=== PATIENT | male | born 1980 | race Caucasian/White ===

== ENCOUNTER 2019-06-05 12:03 | Emergency (ER) | payer BC, SELFPAY ==
[2019-06-05 12:15] VITALS: BP 135/75; PULSE 58; RESP 16; TEMP 36.8; O2SAT 99
[2019-06-05 12:57] LABS: Bilirubin Small (Negative); Blood Negative (Negative); Clarity Cloudy (Clear); Glucose Negative (Negative); Ketones 80 mg/dL (Negative); Leukocyte Esterase Negative (Negative); Nitrite Negative (Negative); Specific Gravity >= 1.030 (1.005-1.025); Urobilinogen 0.2 EU/dL (Up TO 0.2); pH 5.5 (5-8)
[2019-06-05 13:07] LABS: Epithelial Cells Rare HPF (Negative); RBC Negative HPF (0-2); WBC 0-2 HPF (0-5)
[2019-06-05 13:08] LABS: C & S Indicated? No; Crystals Moderate Amorphous HPF (Negative); Mucus Moderate (Negative)
--- NOTE | 2019-06-05 13:17 | ED.GENADUL_ITS ---
Discharge Plan Disposition Patient Disposition: HOME Condition: Stable Discharge Details Chief Complaint: Abd Prob Clinical Impression: Kidney stone on right side Primary Care Provider: Karl Dow ED Provider: Luis Peoples Home Meds and New Rx's Prescriptions: New morphine 20 mg/5 mL (4 mg/mL) solution 10 - 20 mg PO Q4H PRN (Reason: pain) Qty: 50 RF: 0 ondansetron HCl [Zofran] 4 mg tablet 4 mg PO Q6H PRN (Reason: nausea and vomiting) Qty: 10 RF: 0 Discharge Instructions Instructions: Kidney Stones (ED) Additional Instructions: 1. Drink plenty of fluids. 2. Continue all medications as prescribed. 3. Acetaminophen 1000mg every 4 hours (up to 5 time a day) and/or ibuprofen 600mg every 6 hours as needed for fever or pain. 4. Morphine liquid 5 to 10 mg every 4 hours as needed for additional pain control. Return to the Emergency Department (ED) if your condition worsens, does not improve as expected, or for ANY other concerns. Specifically, return if you have new or uncontrolled pain, worsening fever, difficulty breathing, vomiting, or are unable to drink fluids. Referrals: Chavez Jenkins MD [ [facility] STAFF PHYSICIAN] - Discharge Data Discharge Date/Time-TO BE ENTERED AT DEPARTURE: 06/05/19 16:03 Medical Decision Making 39-year-old gentleman presents with new onset of atypical right-sided flank pain rating to his groin. Exam significant for right flank tenderness and right lower quadrant tenderness which reproduces subjective symptoms. UA nondiagnostic. Renal colic CT diagnostic for 6 mm UVJ stone. Clinical improved after receiving oral analgesia. Discharged home with a plan for OTC analgesia and outpatient urology follow-up. Given usual and customary return instructions prior to discharge. Medical Records Medical records reviewed: Yes I reviewed the patient's medical records. Imaging Data Radiologic Study: Attestation: I personally reviewed and interpreted this imaging study as follows: Imaging: CT Scan (Renal colic) My impression: There is a 6 millimeter UVJ stone with mild associated hydronephrosis.. There are bilateral duplex collecting systems. Reviewed independently contemporaneously by myself. Radiologist's impression: Same HPI 39-year-old gentleman with unremarkable past medical history presents with acute onset of severe right-sided abdominal pain with associated nauseous. He has had a sense of urinary urgency with decreased urinary output. Denies having history of previous similar symptoms. He denies fever/chills, dyspnea, chest pain, palpitations, generalized abdominal pain, change in bowel habits, melena, hematochezia. He has had no atypical lower extremity pain or swelling. General Date/Time Provider Initiated Documentation: 06/05/19 12:46 . Related Data Home Medications Medication Instructions Recorded Confirmed morphine 10 - 20 mg PO Q4H PRN #50 ml 06/05/19 ondansetron HCl [Zofran] 4 mg PO Q6H PRN #10 tab 06/05/19 Previous Rx's Medication Instructions Recorded morphine 10 - 20 mg PO Q4H PRN #50 ml 06/05/19 ondansetron HCl [Zofran] 4 mg PO Q6H PRN #10 tab 06/05/19 Allergies Allergy/AdvReac Type Severity Reaction Status Date / Time feathers AdvReac Mild epistaxis Unverified 06/05/19 12:39 General Stated Complaint: Abd Prob RADHA: 3 Review of Systems All systems reviewed & are unremarkable except as noted in HPI and below PFSH Social History Smoking/Tobacco Use Status: Never Drug use: Never Do you feel safe in your relationship?: Yes Exam Narrative Exam Narrative: Nursing note and vital signs have been reviewed and noted. GENERAL: alert, active, no acute distress, well -hydrated, well-nourished HEENT: atraumatic/normocephalic, PERRLA, EOMI, conjunctiva clear, external ears/canals normal, nasal mucosa normal NECK: supple, full range of motion, no mass, normal lymphadenopathy, no thyromegaly CARDIOVASCULAR: RRR, no murmurs, nl pulses, no edema PULMONARY: nl effort, no audible wheezing or stridor, nl breath sounds with no focal deficit. no chest wall tenderness ABDOMEN: soft, mild right flank/right lower quadrant tenderness., non-distended, no mass, no organomegaly EXTREMITY: normal muscle tone, all joints with FROM, no deformity or tenderness SKIN: no exanthem appreciated NEURO: gross motor exam normal, normal stance and gait PSYCH: alert and oriented, Course Vital Signs Vital signs: Vital Signs Temperature 98.2 F 06/05/19 12:15 Pulse 58 L 06/05/19 12:15 Respiratory Rate 16 06/05/19 12:15 Blood Pressure 135/75 06/05/19 12:15 Pulse Oximetry 99 06/05/19 12:15 Temperature 98.2 F 06/05/19 12:15 Temperature Source Temporal Artery Scan 06/05/19 12:15 Pulse 58 L 06/05/19 12:15 Respiratory Rate 16 06/05/19 12:15 Respiratory Effort Non-Labored 06/05/19 12:36 Blood Pressure 135/75 06/05/19 12:15 Blood Pressure Position Sitting 06/05/19 12:15 Pulse Oximetry 99 06/05/19 12:15 Pain Level 10 06/05/19 12:36 Lab/Test Results Lab/Test Results: Laboratory Tests Range/Units 06/05/19 12:51 Urine Color (Yellow) Yellow Urine Clarity (Clear) Cloudy Urine pH (5-8) 5.5 Ur Specific [place] (1.005-1.025) >= 1.030 H Urine Protein (Negative) mg/dL 30 H Urine Ketones (Negative) mg/dL 80 H Urine Blood (Negative) Negative Urine Nitrite (Negative) Negative Urine Bilirubin (Negative) Small H Urine Urobilinogen (Up TO 0.2) EU/dL 0.2 Ur Leukocyte Esterase (Negative) Negative Urine RBC (0-2) HPF Negative Urine WBC (0-5) HPF 0-2 Ur Epithelial Cells (Negative) HPF Rare Urine Crystals (Negative) HPF Moderate amorphous Urine Bacteria Not Applicable Urine Mucus (Negative) Moderate Ur Culture Indicated? No Urine Glucose (Negative) mg/dL Negative
[2019-06-05] MEDS: Lactated Ringers 1,000 ML 1000 ML IV (13:23)
[2019-06-05] MEDS: Metoclopramide 10 MG/2 ML VIAL IVP (13:24)
[2019-06-05] MEDS: Ketorolac 15 MG/ML VIAL IVP (13:24)
[2019-06-05] MEDS: HYDROmorphone 2 MG/ML VIAL 1 MG IVP (13:25)
[2019-06-05] MEDS: Normal Saline Flush 10 ML SYR IVP (13:25)
[2019-06-05] MEDS: Normal Saline 50 ML 200 ML (13:25)
[2019-06-05 13:33] LABS: Abs Immature Grans 0.05 k/cumm (0.0-0.09); Absolute Basophil Count 0.07 k/cumm (0.0-0.2); Absolute Eosinophil Count 0.01 k/cumm (0.0-0.7); Absolute Neutrophil Count 11.08 k/cumm (1.2-6.7); Basophils % 0.5; Eosinophils % 0.1; HCT 46.9 % (40.0-50.0); HGB 15.7 g/dL (13.5-17.5); Immature Grans % 0.4 %; Lymphocytes % 12.8; Mean Corp. HGB Concentration 33.5 g/dL (32.0-36.0); Mean Corpuscular Hemoglobin 29.6 pg (27.0-33.0); Mean Corpuscular Volume 88.3 fL (80-95); Mean Platelet Volume 10.6 fL (8.0-11.0); Monocytes % 6.7; Neutrophils % 79.5; Platelet Count 221 x1000/uL (130-400); RBC 5.31 m/cumm (4.50-6.00); RBC Distribution Width 13.2 % (11.8-14.1); White Blood Cell Count 13.94 k/cumm (4.4-10.8)
[2019-06-05 13:36] LABS: Absolute Lymphocyte Count 1.78 k/cumm (1.2-3.4); Absolute Monocyte Count 0.93 k/cumm (0.11-0.7)
--- NOTE | 2019-06-05 14:32 | DI.CT_ITS ---
EXAM: CT RENAL COLIC WO CLINICAL HISTORY: flank pain TECHNIQUE: Noncontrast COMPARISON: RENAL COLIC WO CONTRAST from 09/16/2016 FINDINGS: There is a 6 millimeter stone above the right ureterovesical junction causing mild right hydronephros is. There are bilateral duplex collecting systems. The upper and lower pole ureters merge proximall y. No additional urinary tract calculi are seen. The urinary bladder is nearly empty. The prostate is not enlarged. Gallstones are noted. There is no abnormal gallbladder distention or biliary dila tation. There is mild fatty infiltration of the liver and mild splenic enlargement. The pancreas an d adrenals are unremarkable. The appendix appears normal. There is no bowel dilatation or inflammat ory change. There is a mild amount of fat in the right inguinal canal. The aorta is normal in diame ter. No bony abnormalities are seen. IMPRESSION: Mild right hydronephrosis secondary to a 6 millimeter stone above the right ureterovesical junction.
[2019-06-05 15:23] VITALS: BP 113/68; PULSE 78; RESP 18; TEMP 36.5; O2SAT 95
[2019-06-05 15:52] VITALS: BP 106/59; PULSE 80; RESP 18; TEMP 36.5; O2SAT 95
== END 2019-06-05 16:03 | disposition home or self-care (01) ==
PROVIDERS: Emergency Provider Emergency Medicine; PCP General Practice
DX: R11.0 Nausea (principal); R10.31 Right lower quadrant pain; N13.2 Hydronephrosis with renal and ureteral calculous obstruction
CPT/HCPCS: 36415; 80053; 96361; 96374; 96375; 99284; 74176; 81003; 81015; 83735; 84484; 85025; J1885; J2765

== ENCOUNTER 2020-09-04 17:26 | Outpatient (REF) | payer BC, SELFPAY ==
[2020-09-04 20:38] LABS: HCT 46.1 % (40.0-50.0); HGB 15.7 g/dL (13.5-17.5); MCH 29.6 pg (27.0-33.0); MCHC 34.1 % (32.0-36.0); MCV 86.8 fL (80-95); MPV 11.5 fL (8.0-11.0); Platelet Count 285 10^3/uL (130-400); RBC 5.31 10^6/uL (4.36-5.78); RDW 12.8 % (11.8-14.1); RDW-SD 40.3 fL; WBC 7.17 10^3/uL (4.4-10.8)
[2020-09-04 20:59] LABS: ALT 56 U/L (16-63); AST 25 U/L (15-37); Albumin 4.5 g/dL (3.4-5.0); Alkaline Phosphatase 52 U/L (46-116); Anion Gap 12.7 mmol/L (3-11); BUN 12 mg/dL (7-18); Bilirubin, Total 0.4 mg/dL (0.2-1.0); CO2 27.3 mmol/L (21.0-32.0); Calcium 9.8 mg/dL (8.5-10.1); Calculated LDL 187 mg/dL (<100); Chloride 104 mmol/L (98-107); Cholesterol 264 mg/dL (<200); Glucose 89 mg/dL (74-106); HDL Cholesterol 36 mg/dL (40-60); Potassium 4.1 mmol/L (3.5-5.1); Sodium 144 mmol/L (136-145); Triglyceride 209 mg/dL (<150)
[2020-09-04 21:07] LABS: Bilirubin Negative (Negative); Blood Negative (Negative); Clarity Clear (Clear); Glucose Negative (Negative); Ketones Negative (Negative); Leukocyte Esterase Negative (Negative); Nitrite Negative (Negative); Specific Gravity >= 1.030 (1.005-1.025); Urobilinogen 0.2 EU/dL (Up TO 0.2)
[2020-09-04 21:15] LABS: Uric Acid 6.6 mg/dL (3.5-7.2)
== END 2020-09-04 17:27 | disposition home or self-care (01) ==
LOC: NCHCN 17:26
PROVIDERS: PCP General Practice; Visit Provider Family Medicine
DX: Z00.00 Encounter for general adult medical examination without abnormal findings (principal); R10.9 Unspecified abdominal pain; N20.0 Calculus of kidney
CPT/HCPCS: 80053; 80061; 85027; 81003; 84550

== ENCOUNTER 2020-11-18 16:24 | Outpatient (REF) | payer BC, SELFPAY ==
[2020-11-18 21:57] LABS: Abs Immature Grans 0.03 10^3/uL (0.0-0.06); Absolute Basophil Count 0.02 10^3/uL (0.0-0.2); Absolute Eosinophil Count 0.03 10^3/uL (0.0-0.7); Absolute Lymphocyte Count 1.95 10^3/uL (1.2-3.4); Absolute Monocyte Count 0.89 10^3/uL (0.1-0.8); Absolute Neutrophil Count 7.67 10^3/uL (1.2-6.7); Basophils % 0.2; Bilirubin Negative (Negative); Blood Negative (Negative); Clarity Clear (Clear); Eosinophils % 0.3; Glucose Negative (Negative); HCT 43.8 % (40.0-50.0); HGB 14.7 g/dL (13.5-17.5); Immature Grans % 0.3; Ketones Trace mg/dL (Negative); Leukocyte Esterase Negative (Negative); Lymphocytes % 18.4; MCH 29.3 pg (27.0-33.0); MCHC 33.6 % (32.0-36.0); MCV 87.4 fL (80-95); MPV 11.7 fL (8.0-11.0); Monocytes % 8.4; Neutrophils % 72.4; Nitrite Negative (Negative); Nucleated RBC 0 %; Platelet Count 241 10^3/uL (130-400); RBC 5.01 10^6/uL (4.36-5.78); RDW 12.6 % (11.8-14.1); RDW-SD 40.1 fL; Specific Gravity >= 1.030 (1.005-1.025); WBC 10.59 10^3/uL (4.4-10.8)
[2020-11-18 22:22] LABS: ALT 38 U/L (16-63); AST 15 U/L (15-37); Alkaline Phosphatase 49 U/L (46-116); Anion Gap 10.8 mmol/L (3-11); BUN 12 mg/dL (7-18); Bilirubin, Total 0.7 mg/dL (0.2-1.0); CO2 26.2 mmol/L (21.0-32.0); CREATININE 1.5 mg/dL (0.70-1.30); Calcium 9.1 mg/dL (8.5-10.1); Chloride 104 mmol/L (98-107); Estimated GFR 51.57 (mL/min/1.73m2); Glucose 99 mg/dL (74-106); Sodium 141 mmol/L (136-145); Total Protein 7.4 g/dL (6.4-8.2)
== END 2020-11-18 16:25 | disposition home or self-care (01) ==
LOC: NCHCN 16:24
PROVIDERS: PCP General Practice; Visit Provider Family Medicine
DX: R10.9 Unspecified abdominal pain (principal); R82.998 Other abnormal findings in urine
CPT/HCPCS: 80053; 81003; 85025

== ENCOUNTER 2021-08-13 17:15 | Outpatient (REF) | payer BC, SELFPAY ==
[2021-08-13 14:43] LABS: Abs Immature Grans 0.02 10^3/uL (0.0-0.06); Absolute Basophil Count 0.03 10^3/uL (0.0-0.2); Absolute Eosinophil Count 0.11 10^3/uL (0.0-0.7); Absolute Lymphocyte Count 1.79 10^3/uL (1.2-3.4); Absolute Monocyte Count 0.46 10^3/uL (0.1-0.8); Absolute Neutrophil Count 3.26 10^3/uL (1.2-6.7); Basophils % 0.5; Eosinophils % 1.9; HCT 47.1 % (40.0-50.0); HGB 15.8 g/dL (13.5-17.5); Immature Grans % 0.4; Lymphocytes % 31.6; MCH 29.6 pg (27.0-33.0); MCHC 33.5 % (32.0-36.0); MCV 88.2 fL (80-95); MPV 11.6 fL (8.0-11.0); Monocytes % 8.1; Neutrophils % 57.5; Nucleated RBC 0 %; Platelet Count 287 10^3/uL (130-400); RBC 5.34 10^6/uL (4.36-5.78); RDW 12.6 % (11.8-14.1); RDW-SD 40.4 fL; WBC 5.67 10^3/uL (4.4-10.8)
[2021-08-13 15:00] LABS: ALT 70 U/L (16-63); AST 24 U/L (15-37); Albumin 4.2 g/dL (3.4-5.0); Alkaline Phosphatase 58 U/L (46-116); Anion Gap 9.1 mmol/L (3-11); BUN 13 mg/dL (7-18); Bilirubin, Total 0.5 mg/dL (0.2-1.0); CO2 27.9 mmol/L (21.0-32.0); Calcium 9.1 mg/dL (8.5-10.1); Chloride 103 mmol/L (98-107); Glucose 98 mg/dL (74-106); Potassium 4.1 mmol/L (3.5-5.1); Sodium 140 mmol/L (136-145); Total Protein 7.7 g/dL (6.4-8.2)
[2021-08-13 16:57] LABS: Bilirubin Negative (Negative); Blood Negative (Negative); Clarity Clear (Clear); Glucose Negative (Negative); Ketones Negative (Negative); Leukocyte Esterase Negative (Negative); Nitrite Negative (Negative); Specific Gravity 1.025 (1.005-1.025); Urobilinogen 0.2 EU/dL (Up TO 0.2)
== END 2021-08-13 17:16 | disposition home or self-care (01) ==
LOC: NCHCN 17:15
PROVIDERS: PCP General Practice; Visit Provider Family Medicine
DX: R10.9 Unspecified abdominal pain (principal); K22.0 Achalasia of cardia
CPT/HCPCS: 80053; 81003; 85025

== ENCOUNTER 2021-09-09 01:03 | Outpatient (CLI) | payer BC, SELFPAY ==
--- NOTE | 2021-09-09 13:45 | DI.CT_ITS ---
Exam(s) CT ABDOMEN PELVIS W EXAM: CT ABDOMEN PELVIS W CLINICAL HISTORY: ABD PAIN, R10.9; ACHALASIA, K22.0; CHOLELITHIASIS, K80.20 TECHNIQUE: COMPARISON: CT RENAL COLIC WO CONTRAST from 09/16/[address] RENAL COLIC WO from 06/05/2019 FINDINGS: CT examination of the abdomen and pelvis was performed with bolus infusion of 100 cc of Omnipaque 350 . Images obtained through the lung bases are unremarkable. The liver shows mildly decreased attenuation consistent with hepatic steatosis. A linear low attenua tion area noted in the left hepatic lobe is unchanged prior CT 2017. There is a poorly defined inter mediate attenuation 1.5 cm in diameter mass in the right hepatic lobe posteriorly and an additional a joanne of intermediate attenuation/decreased attenuation is noted in the left hepatic lobe. Note is mad e of cholelithiasis. No biliary dilatation.. Spleen is unremarkable in appearance.. Pancreas is unremarkable in appearance. Adrenals appear normal bilaterally. Kidneys appear normal with no evidence of renal mass, hydronephrosis, or nephrolithiasis. Unremarkab le bladder. There is no evidence of abdominal or pelvic adenopathy. Abdominal aorta is of normal diameter and no abnormality is seen involving major visceral branches.. Appendix is normal. No evidence diverticulitis or bowel obstruction. No significant abdominal wall hernia seen. CT examination of the abdomen and pelvis was performed with bolus infusion of 100 cc of Omnipaque 350 . Impression: Cholelithiasis and indeterminate small hepatic low to intermediate attenuation lesions which were not present on prior CT examinations. Hepatic protocol MRI requested for further characterization of th e small hepatic lesions.. RADIATION DOSE DELIVERED: 1,498.59mGy.cm Total DLP 1,498.59mGy.cm Total DLP !Error CTDIvol DATA REPOSITORY: All CT scans at this facility are submitted to the National Radiology Data Registry (NRDR) Dose Index Registry (DIR) with the [employer] (ACR). RADIATION OPTIMIZATION: All CT scans at this facility use at least one of these dose optimization te chniques: automated exposure control; mA and/or kV adjustment per patient size (includes targeted exa ms where dose is matched to clinical indication); or iterative reconstruction.
[2021-09-09] MEDS: Omnipaque 350 MG/ML 100 ML BTL IJ (14:29)
== END 2021-09-09 01:23 ==
PROVIDERS: PCP Family Medicine; Visit Provider Family Medicine
DX: R10.9 Unspecified abdominal pain (principal); K80.20 Calculus of gallbladder without cholecystitis without obstruction; K22.0 Achalasia of cardia; K76.0 Fatty (change of) liver, not elsewhere classified; K76.89 Other specified diseases of liver
CPT/HCPCS: 74177; J3490

== ENCOUNTER → 2021-10-08 00:36 | Outpatient (CLI) | payer BC, SELFPAY ==
--- NOTE | 2021-10-08 | DI.MRI_ITS ---
Exam(s) MR ABDOMEN WO/W EXAM: MR ABDOMEN WO/W CLINICAL HISTORY: ABD PAIN R10.9 TECHNIQUE: Multiplanar multisequence MRI was performed with both pre and post contrast infused seque nces. Contrast injected sequences were performed following IV injection of cc of Dotarem. COMPARISON: CT RENAL COLIC WO CONTRAST from 09/16/[address] RENAL COLIC WO from 06/05/[address] ABDOMEN PELVIS W from 09/09/2021 FINDINGS: VISUALIZED LUNG BASES: No pleural effusions evident. There is no ascites evident. LIVER: In the right hepatic lobe there is a subcapsular well-defined slightly lobulated T2 hyperinten se lesion (T1 hypointense) which exhibits postcontrast injection pattern consistent with a benign cav ernous hemangioma. There is a linear signal abnormality also noted more medially in the right hepati c lobe which corresponds to what is unchanged on CT scan from at least 2017 has benign appearance. T here is also a consistently hypointense finding in the left lobe which is probably a benign calcifica tion and also evident on 2017 CT scan. BILIARY: There are multiple tiny gallstones. No gallbladder wall edema or pericholecystic fluid. CB D is not dilated and there no calculi evident in the nondilated CBD. PANCREAS: There is no evidence of pancreatic mass nor dilatation of the pancreatic duct. SPLEEN: Spleen is not enlarged and there are no intrasplenic lesions.Splenic and portal veins are pat ent ADRENALS: There are no significant adrenal masses. KIDNEYS: No solid renal masses. No hydronephrosis.No cysts evident. ABDOMINAL AORTA: Not enlarged and there is no significant para-aortic adenopathy. ANTERIOR ABDOMINAL WALL/GI: There is no evidence of significant anterior abdominal wall hernia in the field of view of this study.Is no evidence of obvious bowel obstruction. OSSEOUS: There are no lytic osseous lesions in the field of view of this study. IMPRESSION: 1. Cholelithiasis. There are multiple tiny gallstones (as seen on prior imaging studies) but there i s no evidence of gallbladder wall edema, pericholecystic fluid, nor dilatation of biliary tree, both intra and extrahepatic. 2. Benign appendix findings as described above. The 1.5 cm lesion of concern in the right hepatic lo be exhibits signal characteristics and enhancement pattern of a benign hemangioma. This can be follo wed conservatively with repeat ultrasound examination in 6 months to ensure stability. 3. No other significant findings on this MRI scan of the upper abdomen. DATA REPOSITORY:
[2021-10-08] MEDS: Gadoterate meglumine 20 ML VIAL IVP (08:31)
== END ==
PROVIDERS: PCP Family Medicine; Visit Provider Family Medicine
DX: K80.20 Calculus of gallbladder without cholecystitis without obstruction (principal)
CPT/HCPCS: 74183

== ENCOUNTER 2023-07-25 11:13 | Outpatient (REF) | payer BC, SELFPAY ==
[2023-07-25 15:35] LABS: Abs Immature Grans 0.03 10^3/uL (0.0-0.06); Absolute Basophil Count 0.03 10^3/uL (0.0-0.2); Absolute Eosinophil Count 0.11 10^3/uL (0.0-0.7); Absolute Lymphocyte Count 1.99 10^3/uL (1.2-3.4); Absolute Monocyte Count 0.69 10^3/uL (0.1-0.8); Absolute Neutrophil Count 6.25 10^3/uL (1.2-6.7); Basophils % 0.3; Eosinophils % 1.2; HCT 44.7 % (40.0-50.0); Immature Grans % 0.3; Lymphocytes % 21.9; MCH 28.8 pg (27.0-33.0); MCHC 33.6 % (32.0-36.0); MCV 86 fL (80-95); MPV 11.6 fL (8.0-11.0); Monocytes % 7.6; Neutrophils % 68.7; Platelet Count 269 10^3/uL (130-400); RDW 12.9 % (11.8-14.1); RDW-SD 39.9 fL
[2023-07-25 15:40] LABS: ESR 8 mm/hr (0-15)
[2023-07-25 16:02] LABS: ALT 44 U/L (16-63); AST 22 U/L (15-37); Albumin 4.1 g/dL (3.4-5.0); Alkaline Phosphatase 60 U/L (46-116); Anion Gap 12.3 mmol/L (3-11); BUN 11 mg/dL (7-18); Bilirubin, Total 0.5 mg/dL (0.2-1.0); CO2 25.7 mmol/L (21.0-32.0); CREATININE 0.9 mg/dL (0.70-1.30); Calcium 9.3 mg/dL (8.5-10.1); Calculated LDL 139 mg/dL (<100); Chloride 104 mmol/L (98-107); Cholesterol 224 mg/dL (<200); Estimated GFR 108.01 (mL/min/1.73m2); Glucose 97 mg/dL (74-106); HDL Cholesterol 38 mg/dL (40-60); Potassium 4.3 mmol/L (3.5-5.1); Sodium 142 mmol/L (136-145); Total Protein 7.2 g/dL (6.4-8.2); Triglyceride 235 mg/dL (<150)
== END 2023-07-25 11:14 | disposition home or self-care (01) ==
LOC: NCHCN 11:13
PROVIDERS: PCP Family Medicine; Referring Provider Family Medicine; Visit Provider Family Medicine
DX: E78.5 Hyperlipidemia, unspecified; K76.0 Fatty (change of) liver, not elsewhere classified
CPT/HCPCS: 80053; 80061; 85652; 85025

== ENCOUNTER 2023-09-05 07:55 | Emergency (ER) | payer BC, SELFPAY ==
[2023-09-05 07:57] VITALS: BP 199/116; PULSE 86; RESP 13; TEMP 36.2; O2SAT 98
--- NOTE | 2023-09-05 08:15 | DI.CT_ITS ---
Exam(s) CT ABDOMEN PELVIS W EXAM: CT ABDOMEN PELVIS W CLINICAL HISTORY: RUQ abd pain. TECHNIQUE: Imaging Protocol: Axial computed tomography images with coronal and sagittal reformatted images were created and reviewed CONTRAST MATERIAL: Intravenous: Omnipaque 350 Contrast volume:100 ml Oral: / no COMPARISON: CT CT ABDOMEN PELVIS W from 09/09/2021 FINDINGS: ABDOMEN and PELVIS: Lung Bases: No acute findings. Liver: Mildly enlarged. Moderate hepatic steatosis. Previously noted low-density lesion inferiorly in the right lobe of the liver is less visible on the current study. This has the appearance of a he mangioma on prior MRI. Linear area of low attenuation unchanged. Calcifications again noted media lly. Gallbladder and biliary tract: Cholelithiasis. No biliary dilatation. No gallbladder wall thickenin g. Pancreas: Normal density. No abnormal calcifications or inflammatory process. No evidence of mass. Spleen: Normal. Kidneys: Normal size, contour and axis. No radiodense stones. No obstructive uropathy. No suspicious masses seen. Adrenal glands: No masses seen. Vasculature: Abdominal aorta non-dilated. Soft tissues: Unremarkable. Bladder: No gross wall thickening. No calculi.No focal mass. Bowel: No obstruction. No bowel wall thickening. Appendix normal.Normal quantity of stool. Peritoneal cavity: No ascites. No focal collection or mesenteric inflammatory response. Bones: Unremarkable for age. Reproductive organs: Within normal limits. Lymph nodes: Unremarkable. IMPRESSION:: Cholelithiasis. No evidence of colic cystitis. No acute abnormality identified. RADIATION DOSE DELIVERED: Total DLP DATA REPOSITORY: All CT scans at this facility are submitted to the National Radiology Data Registry (NRDR) Dose Index Registry (DIR) with the [employer] (ACR). RADIATION OPTIMIZATION: All CT scans at this facility use at least one of these dose optimization te chniques: automated exposure control; mA and/or kV adjustment per patient size (includes targeted exa ms where dose is matched to clinical indication); or iterative reconstruction.
--- NOTE | 2023-09-05 08:28 | W.ED.GENAD ---
Discharge Plan Disposition Patient Disposition: Home Condition: Stable Discharge Details Clinical Impression: Cholelithiasis Primary Care Provider: Behzad Collier ED Provider: Radha Nicole Home Meds and New Rx's Prescriptions: New ondansetron 4 mg tablet,disintegrating 4 mg PO Q8H PRN (Reason: nausea and vomiting) 4 Days Qty: 9 0RF Rx Instructions: Take 1 tablet up to 3 times daily as needed for nausea and vomiting 20 minutes prior to meals. No Action omeprazole magnesium [Prilosec OTC] 20 mg tablet,delayed release (DR/EC) 20 mg PO DAILY Discharge Instructions Instructions: Gallstones (ED) Additional Instructions: CT scan shows gallstones. Your blood work is normal except for your liver enzymes which are elevated. At this time no evidence for emergent condition or infection requiring surgery. However, please follow up with general surgery in 1-2 weeks. Clear liquids over the next 2-3 days. Then bland diet, advance as tolerated. Stay away from anything fried fatty spicy or dairy. Follow up with primary care provider in 3-5 days. Return to ED sooner if any worsening or concerns. Please take Tylenol or Ibuprofen with food every 4-6 hours as needed for pain and swelling. Take the nausea medications as directed. Referrals: Behzad Collier MD [Primary Care Provider] - 5 days Rosa Dietz DO [OSTEOPATHIC DOCTOR] - 1 week Discharge Data Discharge Date/Time-TO BE ENTERED AT DEPARTURE: 09/05/23 10:07 HPI General Mode of arrival: ambulatory. Date/Time Provider Initiated Documentation: 09/05/23 08:04. Limitations to Documentation: no limitations. Information obtained by: patient, RN notes reviewed and old records reviewed. HPI Narrative: 43 year old male with a history of esophageal dysphagia and acalasia presents to the ED with RUQ abd pain which began last night. ASsociated with nausea, describes as sharp constant pain. Associated also with diarrhea. Denies fever, chills, vomiting. Has been told he has gallstones in the past. Related Data Home Medications Medication Instructions Recorded Confirmed omeprazole magnesium 20 mg 20 mg PO DAILY 01/06/22 04/25/22 tablet,delayed release (Prilosec OTC) ondansetron 4 mg disintegrating 4 mg PO Q8H PRN nausea and 09/05/23 tablet vomiting 4 days #9 tabs Previous Rx's Medication Instructions Recorded ondansetron 4 mg disintegrating 4 mg PO Q8H PRN nausea and 09/05/23 tablet vomiting 4 days #9 tabs Allergies Allergy/AdvReac Type Severity Reaction Status Date / Time feathers AdvReac Mild epistaxis Unverified 03/02/22 13:08 General Stated Complaint: Abd Prob RADHA: 3 Review of Systems All systems reviewed & are unremarkable except as noted in HPI and below Gastrointestinal Gastrointestinal: Reports abdominal pain, Reports diarrhea and Reports nausea Exam Narrative Exam Narrative: Constitutional: Alert and oriented x3. Appears stated age. Normal body habitus. Head: Normocephalic, no trauma. Eyes: Pupils PERRL, Red reflex noted, EOM's intact. Eyelids symmetrical without lesions, discharge, or swelling. Chest: RRR, Normal S1, S2, distal pulses intact. Resp: Lungs clear to auscultation bilaterally, no wheezes, rales, or rhonchi. Abdomen: Soft, non-distended, Normoactive bowel sounds all 4 quads. Musculoskeletal: Normal gait, Skin: No suspicious rashes or lesions. Capillary refill less than 2 sec. Neurologic: Cranial nerves II-XII intact. Alert and oriented x 3. Motor: No deficits noted. Sensory: Intact bilaterally all 4 extremities. Hematologic/Lymphatic: No ecchymosis, no lymphadenopathy. Course Vital Signs Vital signs: Vital Signs Temperature 36.2 C L 09/05/23 07:57 Pulse 86 09/05/23 07:57 Respiratory Rate 13 09/05/23 07:57 Blood Pressure 199/116 H 09/05/23 07:57 Pulse Oximetry 98 09/05/23 07:57 Temperature 36.2 C L 09/05/23 07:57 Temperature Source Oral 09/05/23 07:57 Pulse 86 09/05/23 07:57 Respiratory Rate 13 09/05/23 07:57 Blood Pressure 199/116 H 09/05/23 07:57 Blood Pressure Position Sitting 09/05/23 07:57 Pulse Oximetry 98 09/05/23 07:57 Oxygen Delivery Method OxyMask 09/05/23 07:57 Pain Level 7 09/05/23 07:57 Medical Decision Making 43 year old male with a history of esophageal dysphagia and acalasia presents to the ED with RUQ abd pain which began last night. ASsociated with nausea, describes as sharp constant pain. Associated also with diarrhea. No leukocytosis, Liver enzymes elevated. AST 109, ALT 102 CT scan shows gallstones, no evidence for cholecystitis, no obstruction, liver mildly enlarged with hepatic steatosis. Patient given instructions to follow-up with general surgery and/or PCP and to return if any worsening. This text was generated using [employer] system, please disregard any oddities of phrase or misspellings. Medical Records Medical records reviewed: Yes I reviewed the patient's medical records. Imaging Data Radiologic Study: Imaging: CT Scan Radiologist's impression: EXAM: CT ABDOMEN PELVIS W CLINICAL HISTORY: RUQ abd pain. TECHNIQUE: Imaging Protocol: Axial computed tomography images with coronal and sagittal reformatted images were created and reviewed CONTRAST MATERIAL: Intravenous: Omnipaque 350 Contrast volume:100 ml Oral: / no COMPARISON: CT CT ABDOMEN PELVIS W from 09/09/2021 FINDINGS: ABDOMEN and PELVIS: Lung Bases: No acute findings. Liver: Mildly enlarged. Moderate hepatic steatosis. Previously noted low-density lesion inferiorly in the right lobe of the liver is less visible on the current study. This has the appearance of a hemangioma on prior MRI. Linear area of low attenuation unchanged. Calcifications again noted medially. Gallbladder and biliary tract: Cholelithiasis. No biliary dilatation. No gallbladder wall thickening. Pancreas: Normal density. No abnormal calcifications or inflammatory process. No evidence of mass. Spleen: Normal. Kidneys: Normal size, contour and axis. No radiodense stones. No obstructive uropathy. No suspicious masses seen. Adrenal glands: No masses seen. Vasculature: Abdominal aorta non-dilated. Soft tissues: Unremarkable. Bladder: No gross wall thickening. No calculi.No focal mass. Bowel: No obstruction. No bowel wall thickening. Appendix normal.Normal quantity of stool. Peritoneal cavity: No ascites. No focal collection or mesenteric inflammatory response. Bones: Unremarkable for age. Reproductive organs: Within normal limits. Lymph nodes: Unremarkable. IMPRESSION:: Cholelithiasis. No evidence of colic cystitis. No acute abnormality identified. Lab Data Lab results reviewed: Yes I reviewed the patient's lab results. Labs: Laboratory Tests Range/Units 09/05/23 09/05/23 08:15 08:17 WBC (4.4-10.8) 10^3/uL 8.84 RBC (4.36-5.78) 10^6/uL 5.47 Hgb (13.5-17.5) g/dL 16.2 Hct (40.0-50.0) % 47.0 MCV (80-95) fL 86 MCH (27.0-33.0) pg 29.6 MCHC (32.0-36.0) % 34.5 RDW (11.8-14.1) % 12.7 Plt Count (130-400) 10^3/uL 249 MPV (8.0-11.0) fL 11.2 H Immature Gran % 0.5 Neutrophils % 74.9 Lymphocytes % 17.4 Monocytes % 5.5 Eosinophils % 1.2 Basophils % 0.5 Nucleated RBC % (0.0-0.3) % 0.0 Absolute Neutrophils (1.2-6.7) 10^3/uL 6.62 Absolute Lymphocytes (1.2-3.4) 10^3/uL 1.54 Absolute Monocytes (0.1-0.8) 10^3/uL 0.49 Absolute Eosinophils (0.0-0.7) 10^3/uL 0.11 Absolute Basophils (0.0-0.2) 10^3/uL 0.04 Sodium (136-145) mmol/L 140 Potassium (3.5-5.1) mmol/L 3.6 Chloride (98-107) mmol/L 103 Carbon Dioxide (21.0-32.0) mmol/L 30.1 Anion Gap (3-11) mmol/L 6.9 BUN (7-18) mg/dL 11 Creatinine (0.70-1.30) mg/dL 1.0 Est GFR (CKD-EPI 2020) (mL/min/1.73m2) 95.18 Glucose (74-106) mg/dL 112 H Calcium (8.5-10.1) mg/dL 9.0 Magnesium (1.8-2.4) mg/dL 2.0 Total Bilirubin (0.2-1.0) mg/dL 1.0 AST (15-37) U/L 109 H ALT (16-63) U/L 102 H Alkaline Phosphatase (46-116) U/L 74 Total Protein (6.4-8.2) g/dL 7.9 Albumin (3.4-5.0) g/dL 4.0 Lipase (16-77) U/L 26 Urine Color (Yellow) Yellow Urine Clarity (Clear) Clear Urine pH (5-8) 6.0 Ur Specific [place] (1.005-1.025) >= 1.030 H Urine Protein (Neg-Trace) mg/dL Negative Urine Ketones (Negative) mg/dL Negative Urine Blood (Negative) Negative Urine Nitrite (Negative) Negative Urine Bilirubin (Negative) Negative Urine Urobilinogen (Up to 0.2) mg/dL 0.2 Ur Leukocyte Esterase (Negative) Negative Urine Glucose (Negative) mg/dL Negative Quality:SDOH Health Related Social Needs: No Data to Display PFSH All Active Problems (Updated 09/05/23 @ 09:52 by Radha Nicole NP) Cholelithiasis (Acute) Nephrolithiasis (Chronic) Cholelithiasis (Acute) Achalasia (Acute) Abdominal pain (Acute) Non-alcoholic fatty liver disease (Acute) Hepatic hemangioma (Acute) Social History Smoking/Tobacco Use Status: Never Smoking risk assessment performed?: Yes Drug use: Never Do you feel safe in your relationship?: Yes
[2023-09-05 08:44] LABS: Abs Immature Grans 0.04 10^3/uL (0.0-0.06); Absolute Basophil Count 0.04 10^3/uL (0.0-0.2); Absolute Eosinophil Count 0.11 10^3/uL (0.0-0.7); Absolute Lymphocyte Count 1.54 10^3/uL (1.2-3.4); Absolute Monocyte Count 0.49 10^3/uL (0.1-0.8); Absolute Neutrophil Count 6.62 10^3/uL (1.2-6.7); Basophils % 0.5; Eosinophils % 1.2; HGB 16.2 g/dL (13.5-17.5); Immature Grans % 0.5; Lymphocytes % 17.4; MCH 29.6 pg (27.0-33.0); MCHC 34.5 % (32.0-36.0); MCV 86 fL (80-95); MPV 11.2 fL (8.0-11.0); Monocytes % 5.5; Neutrophils % 74.9; Platelet Count 249 10^3/uL (130-400); RBC 5.47 10^6/uL (4.36-5.78); RDW 12.7 % (11.8-14.1); RDW-SD 39.7 fL; WBC 8.84 10^3/uL (4.4-10.8)
[2023-09-05 08:46] LABS: Bilirubin Negative (Negative); Blood Negative (Negative); Clarity Clear (Clear); Glucose Negative (Negative); Ketones Negative (Negative); Leukocyte Esterase Negative (Negative); Nitrite Negative (Negative); Specific Gravity >= 1.030 (1.005-1.025); Urobilinogen 0.2 mg/dL (Up to 0.2)
[2023-09-05] MEDS: Ondansetron 4 MG/2 ML VIAL IVP (09:00)
[2023-09-05] MEDS: Normal Saline 1,000 ML 1000 ML IV (09:00)
[2023-09-05 09:03] LABS: ALT 102 U/L (16-63); AST 109 U/L (15-37); Alkaline Phosphatase 74 U/L (46-116); Anion Gap 6.9 mmol/L (3-11); BUN 11 mg/dL (7-18); CO2 30.1 mmol/L (21.0-32.0); Chloride 103 mmol/L (98-107); Estimated GFR 95.18 (mL/min/1.73m2); Glucose 112 mg/dL (74-106); Lipase 26 U/L (16-77); Potassium 3.6 mmol/L (3.5-5.1); Sodium 140 mmol/L (136-145); Total Protein 7.9 g/dL (6.4-8.2)
[2023-09-05] MEDS: Normal Saline - Diluent 50 ML VIAL IJ (09:26)
[2023-09-05] MEDS: Omnipaque 350 MG/ML 500 ML BTL-Imaging package IJ (09:27)
[2023-09-05] MEDS: Ondansetron O.D.T. 4 MG TABEF, 3 TABS/BTL PO (10:05)
== END 2023-09-05 10:07 | disposition home or self-care (01) ==
PROVIDERS: Emergency Provider Registered Nurse Emergency; PCP Family Medicine
DX: K80.20 Calculus of gallbladder without cholecystitis without obstruction (principal); R11.2 Nausea with vomiting, unspecified
CPT/HCPCS: 80053; 83690; 96361; 96374; 99285; 74177; 81003; 83735; 85025; 99284; J2405

== ENCOUNTER 2023-10-31 06:10 | Day surgery (SDC) | payer BC, SELFPAY ==
[2023-10-31] VITALS (21 sets, daily range): BP systolic 101–145; BP diastolic 61–95; PULSE 60–75; RESP 10–21; TEMP 36.3–36.7; O2SAT 91–97; BMI 37.8
--- NOTE | 2023-10-31 06:14 | W.ANESPRE ---
General Info Date of Service Date Performed: 10/31/23 Height: 5 ft 10.25 in Weight: 120.372 kg Body Mass Index (BMI): 37.8 Surgical Procedure: Operation Date: 10/31/23 07:40 Proposed Procedure Side Surgeon p Cholecystectomy Laparoscopic, possible open Rosa Dietz DO Meds Allergies and Home Medications Allergies Allergy/AdvReac Type Severity Reaction Status Date / Time feathers AdvReac Mild epistaxis Verified 10/31/23 06:18 Home Medication Medication Instructions Recorded omeprazole magnesium 20 mg 20 mg PO DAILY 01/06/22 tablet,delayed release (Prilosec OTC) ondansetron 4 mg disintegrating 4 mg PO Q6H 09/20/23 tablet mecobalamin (vitamin B12) 5,000 5,000 mcg PO DAILY 10/02/23 mcg chewable tablet Current Visit Medications: Current Medications Generic Name Dose Route Start Last Admin Trade Name Freq PRN Reason Stop Dose Admin Acetaminophen 1,000 mg 10/31/23 06:00 Acetaminophen 500 Mg Tab PO 10/31/23 23:59 PREOP BATOOL Gabapentin 600 mg 10/31/23 06:34 Gabapentin 300 Mg Cap PO 10/31/23 06:35 PREOP ONE Ringer's Solution 1,000 mls @ 80 mls/hr 10/31/23 06:00 IV 10/31/23 23:59 INFUSION BATOOL Cefazolin Sodium 3,000 mg/ 100 mls @ 200 mls/hr 10/31/23 06:00 Sodium Chloride IVPB 10/31/23 23:59 PREOP BATOOL Ondansetron HCl 4 mg/ Sodium 52 mls @ 200 mls/hr 10/30/23 22:38 Chloride IVPB 11/29/23 22:37 Q6H PRN PRN IV Miscellaneous Supplies 1 each 10/31/23 06:00 Iv Access IV 10/31/23 23:59 DIRECTED BATOOL Indocyanine Green 5 mg 10/31/23 06:00 Indocyanine Green 25 Mg Vial IVP 10/31/23 23:59 DIRECTED BATOOL Morphine Sulfate 2 mg 10/30/23 22:38 Morphine 4 Mg/Ml Syr IVP 11/29/23 22:37 Q1H PRN PRN Sodium Chloride 0 ml 10/31/23 06:00 Normal Saline Flush 10 Ml Syr IV 10/31/23 23:59 PRN PRN Sodium Chloride 0 ml 10/31/23 06:00 Normal Saline 10 Ml Vial IJ 10/31/23 23:59 DIRECTED PRN Sterile Water 0 ml 10/31/23 06:00 Water,Injection,Sterile 10 Ml Vial IJ 10/31/23 23:59 DIRECTED PRN Tramadol HCl 50 mg 10/30/23 22:38 Tramadol 50 Mg Tab PO 11/29/23 22:37 Q6H PRN PRN Pain PFSH Active Problems Active Problems: Problem Status Onset Code S/P laparoscopy Z98.890 Calculus of gallbladder with chronic cholecystitis K80.10 Benign esophageal stricture K22.2 Obesity (BMI 30-39.9) E66.9 Chronic GERD K21.9 Nephrolithiasis N20.0 Cholelithiasis K80.20 Abdominal pain R10.9 Non-alcoholic fatty liver disease K76.0 Hepatic hemangioma D18.03 Medical History Medical History Achalasia 80% corrected Surgical History Surgical History Status post vasectomy Tobacco Smoking/Tobacco Use Status: Never Alcohol Alcohol Intake: never Substance Use Substance use: Never Substance use type: does not use Vital Signs and Lab Results Lab Results Blood Type / Crossmatch: No Data to Display Complete Blood Count: No Data to Display Complete Metabolic Panel: No Data to Display Liver Function Panel: No Data to Display Coagulation Panel: No Data to Display Cardiac Panel: No Data to Display Arterial Blood Gas: No Data to Display Venous Blood Gas: No Data to Display Pancreas Panel: No Data to Display Thyroid Panel: No Data to Display Infectious Disease: No Data to Display Blood Cultures: No Data to Display Toxicology Panel: No Data to Display Anesthesia Assessment and Plan Anesthesia History Personal History: No History of Anesthesia Complications Family History: No Family History of Anesthesia Complications Exercise Tolerance Exercise Tolerance: Metabolic Equivalents>4 Cardiac & Pulmonary Exam Cardiac Exam: Normal S1/S2 Heart Sounds Pulmonary Exam: Clear Bilateral Breath Sounds Implantable Cardiac Device Does patient have a Pacemaker or an ICD?: No Airway Exam Known Difficult Airway: No Mallampati Class: 2 Mouth Opening: Narrow (< 3cm) Thyromental Distance: Greater than 3 cm Neck Range of Motion: Full ROM Neck Circumference: Thick Teeth Condition: Normal Dentition ASA Classification ASA Score: ASA 2 Emergency Case?: No NPO Status NPO Status: NPO Clears >2 hours, Solids >8 hours Anesthesia Plan Resuscitation Status: Full Code Anesthesia Technique: General Anesthesia Airway Planned: Endotracheal Tube Monitors Used: Standard Monitors Preoperative Comments:: 43 yo male with cholelithiasis for lap jered. Sig PMHx: GERD (omeprazole, fair control, but sleeps with HOB flat), s/p heller myotomy (does not feel like things get stuck anymore), non-alcoholic fatty liver. never smoker. Previous Anes: - Heller myotomy at [facility] [place], RSI, MAC 4 grade 1, nadir with insufflation.
[2023-10-31] MEDS: Lactated Ringers 1,000 ML 80 ML IV (06:46)
[2023-10-31] MEDS: Indocyanine green 25 MG VIAL 5 MG IVP (06:46)
[2023-10-31] MEDS: ceFAZolin 3,000 MG in Normal Saline 100 ML 200 MG IVPB (07:45)
[2023-10-31] MEDS: Bupivacaine 0.25% Pres-Free W/EPI 30 ML VIAL (08:32)
--- NOTE | 2023-10-31 08:50 | GB_PTH ---
PATIENT: Leroy Hoffman LOC: [facility] U#:[id number] AGE/SX: 43/M ROOM: RE10/31/[address]: Rosa Dietz : 1980 BED: DIS: 10/31/2023 SPEC #: [id number] RECD: 10/31/23 12:07 STATUS: NICK REBirdie #: [id number] BREANNA: 10/31/23 08:[address]: Rosa Dietz DEPT: Surgical Specimen RECD BY: Daniella Richardson ENTERED: 10/31/23 12:07 SP TYPE: GB OTHR DR: Behzad Collier Tissues: 1 - GALLBLADDER Procedures: GROSS AND MICRO LEVEL 3 Comments: [id number]
--- NOTE | 2023-10-31 09:04 | W.PM.OP ---
Date of service: 10/31/23 Time of Service: 09:04 Operative Note Operative Note DATE OF PROCEDURE: 10/31/23 PRE-OP DIAGNOSIS: Chronic cholecystitis cholelithiasis POST-OP DIAGNOSIS: same PROCEDURE: Laparoscopic cholecystectomy SURGEON: Rosa Carlton TUBER MACHINE OPERATOR HELPER: Kirsten Brito ANESTHESIA TYPE: Local By Surgeon and General LMA/ETT Refer to Anesthesia Record ESTIMATED BLOOD LOSS: 5 PATHOLOGY: other COMPLICATIONS: None Patient was transported to: PACU Patient's condition: stable Procedure Description: The pt is seen at the request of there PCP regarding chronic cholecystitis, cholelithiasis. The pt has failed outpt conservative medical measures and is here today for laparoscopic cholecystectomy. Informed consent was obtained, explaining risks and benefits of the procedure including but not limited to bleeding, infection, pneumonia, blood clots, possible damage to bowel, bladder, blood vessels, bile ducts, possible open procedure, complications of general anesthesia and other unforetold complications. PROCEDURE: The patient agrees and is brought to the operative room suite and placed in supine position. Pt receives IV ICG preOp to aid w/ bile duct visualization.? Anesthesia was administered per the Department of Anesthesia. The patient did receive IV antibiotics. NG tube and Tinajero catheter are placed. The patient was prepped and draped in the usual sterile fashion using DuraPrep scrub solution. Pause for the cause was done. 20 mL of 1% buffered lidocaine was used for local anesthetization. A stab incision was made in the umbilicus and the Verres inserted. Drop test was positive and insufflation was begun. When 15 mm of pressure was noted on the monitor, the Veress was removed and #5 port inserted. The camera was inserted through the port and shows no damage to underlying structures. A 10 mm port was then placed in the epigastric position under direct visualization following creation of local field blocks as well as two 5 mm ports in the right upper quadrant. The camera was moved to one of the secondary ports so we could view the umbilical trocar site, and there is are no hernias or adhesions. There was surprisingly little scarring in the abdomen. I did not interrogate the GE junction. The gallbladder fundus was grasped and retracted towards the right shoulder. The omentum was adhered to the gallbladder. This is taken down with a combination of blunt and sharp dissection. Infundibulum was grasped and retracted laterally. The hepat-duodenal ligament is entered. The cystic duct and artery are dissected out and the most inferior portion of the gallbladder plate is removed from the liver and the critical view of safety was obtained after clearing away all fatty material. Endo Clips were placed across the duct and artery and these structures are divided. The remainder of the gallbladder was excised from the liver bed. The gallbladder was placed in a bag and brought out. Examination of the gallbladder shows indeed the cystic duct and artery to have been divided. The remainder of the abdomen was copiously irrigated with a liter of saline. All saline is removed. There is no bleeding or bile leakage from the liver bed or the clips sites. An EndoClose needle was used to close the 10 mm port site with an 0 Vicryl. All ports and instruments are removed. SPonge and needle counts are correct. Pneumoperitoneum is evacuated and the port sites are monitored to make sure there is no bleeding at the time of desufflation. ??Port sites are irrigated and the skin is closed with 4-0 Monocryl in a running subcuticular fashion. Skin glue sterile dressings are applied. The patient tolerated the procedure well without complications, transferred to the recovery room in stable condition. ROSA CARLTON, DO
--- NOTE | 2023-10-31 09:12 | PDOC.DSDIS_ITS ---
Date of service: 10/31/23 Time of Service: 09:12 Discharge Plan Disposition Patient Disposition: Home Condition: Good Discharge Details Reason For Visit: GB removal Attending Provider: Rosa Dietz Primary Care Provider: Behzad Collier Home Meds and New Rx's Prescriptions: New oxycodone-acetaminophen 5-325 mg/5 mL solution 5 ml PO Q6H MDD 25cc PRN10 Days Qty: 250 0RF ondansetron 4 mg tablet,disintegrating 4 mg PO QID PRNQty: 14 0RF Continued mecobalamin (vitamin B12) 5,000 mcg tablet,chewable 5,000 mcg PO DAILY omeprazole magnesium [Prilosec OTC] 20 mg tablet,delayed release (DR/EC) 20 mg PO DAILY ondansetron 4 mg tablet,disintegrating 4 mg PO Q6H Discharge Instructions Additional Instructions: Care after Gallbladder Surgery -Pain control: ?For the first 72 hours after surgery, take your pain meds continuously, and not just when you have pain.?? Ibuprofen 600mg every 6 hours.? Make sure you take ibuprofen with food and not on an empty stomach.? ??Use the oxycodone with Tylenol elixir, For breakthrough pain- pain that is greater than a 7. ?- Use ICE! Ice really helps to keep the swelling down, and swelling causes pain. ??Twenty minutes on, and then off, continuously for the first 72hours.? After the first 72hrs, you can just use the ibuprofen elixer (childern's) or oxycodone/tylenol elixer, and ice, when you have pain.?? If you are taking narcotic pain medication, follow the instructions on the label and do not drive. Pain medications can make you very constipated. Make sure you are moving your bowels daily. If not, take Miralax. - Anesthesia makes you very constipated.? Take a dose of Miralax the morning after surgery. ? Use an ice bag for the first 72 hours. This helps to decrease swelling, which causes pain. It is normal to be more sore/painful and swollen towards the end of the day and first thing in the morning. ? Gallbladder surgery can make you very nauseated; use Zofran for nausea, for the first 24 hours. The nausea generally stops after 24 hours. ? Use Miralax or prune juice to prevent constipation (this is a particular side effect of pain medication and anesthesia). Do not allow yourself to become constipated. ? Avoid fatty or greasy foods; introduce these slowly, with care, after about 1 month. High-fat foods include: ? Foods that are fried, like Arabic fries and potato chips ? High-fat meats, such as alford, bologna, sausage, ground beef, and ribs, pork products ? High-fat dairy products, such as cheese, ice cream, cream, whole milk, and sour cream ? Pizza ? Foods made with lard or butter ? Creamy soups or sauces ? Meat gravies ? Chocolate ? Oils, such as palm and coconut oil ? Skin of chicken or turkey ? Nuts and nut butters ? Avocadoes ? Start out eating very small, bland amounts of food. Do not take pain pills on an empty stomach. - You will notice purple discoloration around the incisions.? This is the ?skin glue?.? This will wear off on its own.? It is OK to shower after 24hrs.? You do not need to cover the incisions. -You should walk frequently, gradually, increasing the distance. You may climb stairs, just go slowly. ? Do not go swimming or sit in a hot tub for two weeks. ? There are no stitches to remove. ? Do not drive your car x72hrs and then only if you have no pain and can move freely. Do not drive if you are taking pain narcotic pain medications. ? You may resume sexual activity whenever pain and soreness subside, usually in 2 weeks. ? Do no lift anything over 5 lbs. for two weeks. ? You may return to work in one week, or when you feel able, provided you do not have to do any heavy lifting or prolonged standing. ? You should return to Dr. Dietz?s office for a post-op appointment about two weeks after surgery. A follow-up should have been scheduled for you already.? If there is not, please call the Surgical Clinic at: [phone] to schedule an appointment. My Medications for pain and nausea are: ibuprofen ?and oxycodone with Tylenol elixir- for severe pain ?and Zofran- nausea When to Call the Office: ? If the incision becomes red or swollen, or there is more than a little drainage from it. ? If you develop a temperature higher than 100.5 F. ? If your eyes turn yellow ? Vomiting and can?t keep fluids down Activity:: see above Remove Dressings/Wound Care:: 24 hours Shower/Bathe:: 24 hours Diet:: low fat DS: Diagnosis Discharge Diagnosis (1) S/P laparoscopy: Status: Acute Asessment and Plan: The patient is doing well post-op from their lap jered surgery.? They are having no nausea or vomiting. They are tolerating liquids and a snack. The pt is not having any chest pain or SOB.? Their pain is adequately controlled. They have been able to urinate.? ?HEENT:? no eye pain/drainage/redness/swelling. Mild sore throat ?Cardio- NSR, no chest pain, BP stable- see VS record ?Pulm: no sob or productive cough. No hemoptysis ?Incision- dressing is c/d/i w/ no excessive bleeding or drainage ?I discussed with the patient the findings at the time of surgery and the patient?s progress. ?We reviewed expectations at home; what the patient could expect for recovery time, and in the post-operative period.? We discussed the importance of walking to avoid blood clots and pneumonia.? We discussed and reviewed the patient's post-operative wound care and dressing needs.?? We reviewed their step-pabon pain management plan, Rx called to the pharmacy of their choice.? We reviewed activity and limitations-see discharge instructions. We reviewed warning signs, and when to seek medical attention- see d/c instructions.?? Patient was given a postoperative follow-up appointment. Patient verbalized understanding of their postoperative instructions, how do to take care of themselves and their incision, and the pain management plan. Please see discharge instructions.? (2) Obesity (BMI 30-39.9): Status: Acute (3) Chronic GERD: Status: Acute (4) Benign esophageal stricture: Status: Acute (5) Non-alcoholic fatty liver disease: Status: Acute (6) Cholelithiasis: Status: Acute (7) Abdominal pain: Status: Acute
--- NOTE | 2023-10-31 09:39 | W.PM.DSUDISC ---
Date of service: 10/31/23 Time of Service: 09:40 Discharge Plan Disposition Patient Disposition: Home Condition: Good Discharge Details Reason For Visit: GB removal Attending Provider: Rosa Dietz Primary Care Provider: Behzad Collier Home Meds and New Rx's Prescriptions: New ondansetron 4 mg tablet,disintegrating 4 mg PO QID PRNQty: 14 0RF Continued mecobalamin (vitamin B12) 5,000 mcg tablet,chewable 5,000 mcg PO DAILY omeprazole magnesium [Prilosec OTC] 20 mg tablet,delayed release (DR/EC) 20 mg PO DAILY ondansetron 4 mg tablet,disintegrating 4 mg PO Q6H No Action hydrocodone-acetaminophen 7.5-325 mg/15 mL solution 15 ml PO Q6H MDD 75cc PRN (Reason: pain) Qty: 118 0RF Discharge Instructions Additional Instructions: Care after Gallbladder Surgery -Pain control: ?For the first 72 hours after surgery, take your pain meds continuously, and not just when you have pain.?? Ibuprofen 600mg every 6 hours.? Make sure you take ibuprofen with food and not on an empty stomach.? ??Use the oxycodone with Tylenol elixir, For breakthrough pain- pain that is greater than a 7. ?- Use ICE! Ice really helps to keep the swelling down, and swelling causes pain. ??Twenty minutes on, and then off, continuously for the first 72hours.? After the first 72hrs, you can just use the ibuprofen elixer (childern's) or oxycodone/tylenol elixer, and ice, when you have pain.?? If you are taking narcotic pain medication, follow the instructions on the label and do not drive. Pain medications can make you very constipated. Make sure you are moving your bowels daily. If not, take Miralax. - Anesthesia makes you very constipated.? Take a dose of Miralax the morning after surgery. ? Use an ice bag for the first 72 hours. This helps to decrease swelling, which causes pain. It is normal to be more sore/painful and swollen towards the end of the day and first thing in the morning. ? Gallbladder surgery can make you very nauseated; use Zofran for nausea, for the first 24 hours. The nausea generally stops after 24 hours. ? Use Miralax or prune juice to prevent constipation (this is a particular side effect of pain medication and anesthesia). Do not allow yourself to become constipated. ? Avoid fatty or greasy foods; introduce these slowly, with care, after about 1 month. High-fat foods include: ? Foods that are fried, like [place] fries and potato chips ? High-fat meats, such as alford, bologna, sausage, ground beef, and ribs, pork products ? High-fat dairy products, such as cheese, ice cream, cream, whole milk, and sour cream ? Pizza ? Foods made with lard or butter ? Creamy soups or sauces ? Meat gravies ? Chocolate ? Oils, such as palm and coconut oil ? Skin of chicken or turkey ? Nuts and nut butters ? Avocadoes ? Start out eating very small, bland amounts of food. Do not take pain pills on an empty stomach. - You will notice purple discoloration around the incisions.? This is the ?skin glue?.? This will wear off on its own.? It is OK to shower after 24hrs.? You do not need to cover the incisions. -You should walk frequently, gradually, increasing the distance. You may climb stairs, just go slowly. ? Do not go swimming or sit in a hot tub for two weeks. ? There are no stitches to remove. ? Do not drive your car x72hrs and then only if you have no pain and can move freely. Do not drive if you are taking pain narcotic pain medications. ? You may resume sexual activity whenever pain and soreness subside, usually in 2 weeks. ? Do no lift anything over 5 lbs. for two weeks. ? You may return to work in one week, or when you feel able, provided you do not have to do any heavy lifting or prolonged standing. ? You should return to Dr. Dietz?s office for a post-op appointment about two weeks after surgery. A follow-up should have been scheduled for you already.? If there is not, please call the Surgical Clinic at: [phone] to schedule an appointment. My Medications for pain and nausea are: ibuprofen ?and oxycodone with Tylenol elixir- for severe pain ?and Zofran-nausea When to Call the Office: ? If the incision becomes red or swollen, or there is more than a little drainage from it. ? If you develop a temperature higher than 100.5 F. ? If your eyes turn yellow ? Vomiting and can?t keep fluids down Activity:: see above Remove Dressings/Wound Care:: 24 hours Shower/Bathe:: 24 hours Diet:: low fat DS: Diagnosis Discharge Diagnosis (1) S/P laparoscopy: Status: Acute (2) Obesity (BMI 30-39.9): Status: Acute (3) Chronic GERD: Status: Acute (4) Benign esophageal stricture: Status: Acute (5) Non-alcoholic fatty liver disease: Status: Acute (6) Cholelithiasis: Status: Acute (7) Abdominal pain: Status: Acute
[2023-10-31] MEDS: Normal Saline 10 ML VIAL IJ (09:56)
[2023-10-31] MEDS: HYDROmorphone 2 MG/ML SYR IVP ×2 (09:56→10:06)
--- NOTE | 2023-10-31 10:00 | W.ANESPOSTOP ---
Postoperative Evaluation Date, Time and Location Date Performed: 10/31/23 Time Performed: 10:00 Patient Location: PACU Vital Signs Most Recent Imported Vital Signs: Most Recent Vital Signs Temp Pulse Resp BP Pulse Ox 36.7 C 72 20 122/75 95 10/31/23 09:51 10/31/23 09:51 10/31/23 09:51 10/31/23 09:51 10/31/23 09:51 Pain Score Most Recent Pain Score: Most Recent Pain Score Pain Level 8 10/31/23 09:51 Assessment Mental Status: Arousable with meaningful communication Airway and Respiratory Function: Patent airway with normal (patient baseline) respiratory exam Cardiovascular Function: Hemodynamically Stable Hydration Status: Adequately Hydrated Nausea & Vomiting: No Nausea or Vomiting Pain: Pain is Moderate or Severe Postoperative Pain Management: Pain being addressed with medication Peripheral Nerve Block: Patient did not receive a nerve block
[2023-10-31] MEDS: oxyCODONE 5 MG/5 ML CUP PO (12:34)
== END 2023-10-31 13:50 | disposition home or self-care (01) ==
PROVIDERS: PCP Family Medicine; Visit Provider Surgery
PROC: 0FT44ZZ Resection of Gallbladder, Percutaneous Endoscopic Approach (ICD-10-PCS; CPT 47562; principal; 2023-10-31 07:30)
DX: K21.9 Gastro-esophageal reflux disease without esophagitis; K22.2 Esophageal obstruction; K76.0 Fatty (change of) liver, not elsewhere classified; K80.10 Calculus of gallbladder with chronic cholecystitis without obstruction
CPT/HCPCS: 47562; 88304; J0131; J0690; J1100; J1170; J1885; J2371; J2405; J2704; J3475

== ENCOUNTER 2024-07-17 13:12 | Outpatient (REF) | payer BC, SELFPAY ==
[2024-07-17 17:15] LABS: ALT 47 U/L (16-63); AST 23 U/L (15-37); Alkaline Phosphatase 69 U/L (46-116); Anion Gap 9.1 mmol/L (3-11); BUN 10 mg/dL (7-18); Bilirubin, Total 0.46 mg/dL (0.2-1.0); CO2 27.9 mmol/L (21.0-32.0); CREATININE 0.9 mg/dL (0.70-1.30); Calcium 9.2 mg/dL (8.5-10.1); Chloride 105 mmol/L (98-107); Estimated GFR 107.33 (mL/min/1.73m2); Glucose 118 mg/dL (74-106); LDL CHOLESTEROL 148 mg/dL (<100); Potassium 4.3 mmol/L (3.5-5.1); Sodium 142 mmol/L (136-145); Total Protein 7.2 g/dL (6.4-8.2)
== END 2024-07-17 13:13 | disposition home or self-care (01) ==
LOC: NCHCN 13:12
PROVIDERS: PCP Family Medicine; Visit Provider Family Medicine
DX: K76.0 Fatty (change of) liver, not elsewhere classified (principal); E78.5 Hyperlipidemia, unspecified
CPT/HCPCS: 80053; 83721

== ENCOUNTER 2024-07-23 17:51 | Emergency (ER) | payer BC, SELFPAY ==
[2024-07-23 17:56] VITALS: BP 176/101; PULSE 84; RESP 18; TEMP 36.4; O2SAT 96
[2024-07-23 18:00] VITALS: BP 176/101; PULSE 84; RESP 18; TEMP 36.4; O2SAT 96
--- NOTE | 2024-07-23 18:21 | ED.GENADUL_ITS ---
Discharge Plan Disposition Patient Disposition: Home Condition: Improving Discharge Details Clinical Impression: Kidney stone on right side, Renal colic on right side Primary Care Provider: Behzad Collier ED Provider: Jackson Anderson [place] Meds and New Rx's Prescriptions: New tamsulosin [Flomax] 0.4 mg capsule 0.4 mg PO DAILY Qty: 30 0RF Continued mecobalamin (vitamin B12) 5,000 mcg tablet,chewable 5,000 mcg PO DAILY omeprazole magnesium [Prilosec OTC] 20 mg tablet,delayed release (DR/EC) 20 mg PO DAILY Discharge Instructions Instructions: Kidney Stone Diet, Kidney Stone, Adult ED Discharge Data Discharge Physician: Jackson Anderson HPI General Date/Time Provider Initiated Documentation: 07/23/24 18:21 . HPI Narrative: Patient presents to the emergency department complaining of lower and left lower quadrant sided abdominal pain associate with nausea and inability to urinate he states that this happened before but gradually improves. States that he urinates just a bit Related Data Home Medications ?Medication ?Instructions ?Recorded ?Confirmed omeprazole magnesium 20 mg 20 mg PO DAILY 01/06/22 07/23/24 tablet,delayed release (Prilosec OTC) mecobalamin (vitamin B12) 5,000 5,000 mcg PO DAILY 10/02/23 07/23/24 mcg chewable tablet tamsulosin 0.4 mg capsule (Flomax) 0.4 mg PO DAILY #30 caps 07/23/24 Previous Rx's ?Medication ?Instructions ?Recorded tamsulosin 0.4 mg capsule (Flomax) 0.4 mg PO DAILY #30 caps 07/23/24 Allergies Allergy/AdvReac Type Severity Reaction Status Date / Time feathers AdvReac Mild epistaxis Verified 07/23/24 17:59 General Stated Complaint: Abd Prob RADHA: 3 Review of Systems Narrative: Review of Systems: Constitutional: No fevers, chills, sweats Eye: No recent visual problems ENT: No ear pain, nasal congestion, sore throat Respiratory: No shortness of breath, cough Cardiovascular: No Chest pain, palpitations, syncope Gastrointestinal: No vomiting, diarrhea Genitourinary: No hematuria Kei/Lymph: Negative for bruising tendency, swollen lymph glands Endocrine: Negative for excessive thirst, excessive hunger Musculoskeletal: No back pain, neck pain, joint pain, muscle pain, decreased range of motion Integumentary: No rash, pruritus, abrasions Neurologic: Alert & oriented X 4 Psychiatric: No anxiety, depression Exam Narrative Exam Narrative: Exam; vitals signs as reported above normal Constitutional; In no acute distress, afebrile General: cooperative, healthy appearing, comfortable and no acute distress HEENT: Head: normal to inspection, no palpable skull fracture and normocephalic atraumatic Eyes: : appearance normal, both eyes and all related structures EOM intact bilaterally Pupils: PERRL : conjunctiva normal Direct ophthalmoscopy: normal light reflex, normal conjunctiva, normal visual acuity Ears: Normal TM, normal external canal Nose: normal no rhinorreha Neck no JVD, supple non tender Neck: normal visual inspection, full ROM and no lymphadenopathy Chest: normal inspection of the chest Respiratory : normal respiratory effort and able to speak in complete sentences no wheezing no rales Cardio Rate: regular rate, rhythm: regular rhythm normal heart sounds S1 and S2 no murmurs, gallops, or rubs GI : normal to inspection, normal bowel sounds, soft, non tender, non distended, no organomegaly Back/Spine/ no CVA tenderness Thoracic/Lumbar Spine: no tenderness or deformities Skin no rashes or lesions Neuro: patient alert oriented x 4 and no meningeal signs, Cranial Nerves: CN's II-XI intact bilaterally, Cognition: normal cognition, Speech: speech normal, Gait: normal gait, Depp tendon reflexes normal 2+ muscle strength 5/5 bilaterally Extremities, no edema, full range of motion, normal strength Course Vital Signs Vital signs: Vital Signs Temperature 36.4 C 07/23/24 17:56 Pulse 84 07/23/24 17:56 Respiratory Rate 18 07/23/24 17:56 Blood Pressure 176/101 H 07/23/24 17:56 Pulse Oximetry 96 07/23/24 17:56 Temperature 36.4 C 07/23/24 18:00 Temperature Source Oral 07/23/24 18:00 Pulse 84 07/23/24 18:00 Respiratory Rate 18 07/23/24 18:00 Blood Pressure 176/101 H 07/23/24 18:00 Pulse Oximetry 96 07/23/24 18:00 Medical Decision Making MDM: Summary: Patient presented to the emergency department with sudden onset of lower abdominal pain and right sided back pain with mild nausea. He also stated that he came here because he is unable to urinate. [id number] ultrasound was done which shows an almost empty bladder normal prostate with decrease in the urinary jets on the right side and hydronephrosis of the right kidney. With suspicion of a kidney stone he was given IV fluid hydration Zofran for he declined any pain medications. He states that instantly he had the urge to urinate and the pain was gone. A CT scan of the abdomen pelvis shows a 4 mm stone in the right UVJ. Patient will be discharged home on Flomax and he will have a follow-up already scheduled for urology because he was not sure why he was having these episodes and he states that he has had 3 of these episodes in the last 2 weeks. Data Review Analysis All the data on this patient was reviewed by me including laboratory and imaging studies as well as bedside studies performed by me Independent review of Studies Imaging CT scan shows a 4 mm stone on the right Lab: Labs are unremarkable except for mild hematuria Risk Stratification: Patient with a kidney stone that most likely passed who will be discharged home Differential Diagnosis: 1. Renal colic 2. Kidney stones 3. Hydronephrosis 4. Urinary retention 5. Pyelonephritis Consultants: Shared disposition: Patient understands disposition he also has already had appointment with urology Impression: Medical Records Medical records reviewed: Yes I reviewed the patient's medical records. Imaging Data Radiologic Study: Attestation: I personally reviewed and interpreted this imaging study as follows: Imaging: CT Scan My impression: Right-sided hydronephrosis with a right-sided kidney stone Lab Data Lab results reviewed: Yes I reviewed the patient's lab results. Quality:SDOH Health Related Social Needs: No Data to Display PFSH All Active Problems (Updated 07/23/24 @ 21:06 by Jackson Anderson MD) Renal colic on right side (Acute) Kidney stone on right side (Acute) Calculus of gallbladder with chronic cholecystitis (Acute) Benign esophageal stricture (Acute) Secondary to previous fundoplication Obesity (BMI 30-39.9) (Acute) Chronic GERD (Acute) Nephrolithiasis (Chronic) Cholelithiasis (Acute) Abdominal pain (Acute) Non-alcoholic fatty liver disease (Acute) Hepatic hemangioma (Acute) Medical History Achalasia 80% corrected Surgical History S/P laparoscopy Heller myotomy and fundoplication in 2015 at [facility] [place]x laparoscopic cholecystectomy (~10/2023) Status post vasectomy Social History Smoking/Tobacco Use Status: Never Smoking risk assessment performed?: Yes Alcohol Intake: never Drug use: Never Substance use type: does not use Housing: house Do you feel safe at home: Yes Do you feel safe in your relationship?: Yes POCUS Exam (ED) Limited Bladder Exam DATE OF EXAM: 07/23/24 TIME OF EXAM: 18:44 PROVIDER THAT PERFORMED THE STUDY: Jackson Anderson REASON FOR EXAM: Determine post void residual and Flank pain right side VISUALIZED STRUCTURES: Bladder, Post-void urinary bladder and Prostate PERTINENT FINDINGS/IMPRESSION: ureteral jets, left side and other impression: Kidney stone right side Exam complete
[2024-07-23 19:01] LABS: Abs Immature Grans 0.03 10^3/uL (0.0-0.06); Absolute Basophil Count 0.04 10^3/uL (0.0-0.2); Absolute Lymphocyte Count 1.41 10^3/uL (1.2-3.4); Absolute Monocyte Count 0.69 10^3/uL (0.1-0.8); Basophils % 0.5 %; Eosinophils % 1.3 %; HCT 39.9 % (40.0-50.0); HGB 13.6 g/dL (13.5-17.5); Immature Grans % 0.4 %; Lymphocytes % 17.7 %; MCH 30.1 pg (27.0-33.0); MCHC 34.1 % (32.0-36.0); MCV 88 fL (80-95); MPV 10.9 fL (8.0-11.0); Monocytes % 8.7 %; Neutrophils % 71.4 %; Platelet Count 217 10^3/uL (130-400); RBC 4.52 10^6/uL (4.36-5.78); RDW 12.6 % (11.8-14.1); RDW-SD 40.9 fL; WBC 7.97 10^3/uL (4.4-10.8)
[2024-07-23] MEDS: Normal Saline 1,000 ML 1000 ML IV (19:11)
[2024-07-23] MEDS: Ondansetron 4 MG/2 ML VIAL IVP (19:11)
[2024-07-23 19:16] LABS: ALT 48 U/L (16-63); AST 24 U/L (15-37); Albumin 3.6 g/dL (3.4-5.0); Alkaline Phosphatase 63 U/L (46-116); Anion Gap 8.3 mmol/L (3-11); BUN 15 mg/dL (7-18); Bilirubin, Total 0.43 mg/dL (0.2-1.0); CO2 28.7 mmol/L (21.0-32.0); Chloride 104 mmol/L (98-107); Estimated GFR 94.59 (mL/min/1.73m2); Glucose 118 mg/dL (74-106); Lipase 24 U/L (<78); Magnesium 1.9 mg/dL (1.8-2.4); Potassium 3.9 mmol/L (3.5-5.1); Sodium 141 mmol/L (136-145); Total Protein 6.8 g/dL (6.4-8.2)
--- NOTE | 2024-07-23 19:22 | DI.CT_ITS ---
Exam(s) CT RENAL COLIC WO EXAM: CT RENAL COLIC WO CLINICAL HISTORY: lower abdominal pain. TECHNIQUE: Imaging Protocol: Axial computed tomography images with coronal and sagittal reformatted images were created and reviewed. COMPARISON: CT RENAL COLIC WO CONTRAST from 09/16/[address] RENAL COLIC WO from 06/05/[address] ABDOMEN PELVIS W from 09/09/[address] ABDOMEN PELVIS W from 09/05/2023 FINDINGS: Lung Bases: No acute findings. Liver: Diffuse fatty infiltration. No measurable mass. Gallbladder and biliary tract: Cholecystectomy. No biliary ductal dilation. Pancreas: No abnormal calcifications or inflammatory process. Spleen: Normal size. Kidneys: Normal size, contour and axis. Bilateral duplex collecting systems. The ureters merge in t he midportion. There is mild right hydronephrosis. The ureter is dilated down to the level of the u reterovesical junction. There is a calcification seen just above the ureterovesical junction which a ppears somewhat eccentrically positioned and not definitely within the ureteral lumen. This calcific ation was present previously and may represent a phlebolith. Hydronephrosis. There is mild right pe rinephric stranding. No suspicious masses seen. Adrenal glands: No mass is seen. Lymph nodes: Within normal limits. Vasculature: Abdominal aorta non-dilated. Bladder:No stones. No gross wall thickening. No evidence of mass. Bowel: No obstruction. No bowel wall thickening. Appendix is normal. Peritoneal cavity: No ascites.No free air. No focal collection. No mesenteric inflammatory response. Reproductive organs: Within normal limits. Bones: Degenerative changes greatest at L5-S1. Soft Tissues: Small fat containing right inguinal hernia. IMPRESSION: Mild right hydronephrosis. The ureter is dilated down to the ureterovesical junction. There is a st one adjacent to the distal right ureter which is eccentrically positioned and may represent a phlebo lith. It was present on the prior exams back to 2019 but not 2016. Urology consult recommended. RADIATION DOSE DELIVERED: 1,091.33mGy.cm Total DLP 1,091.33mGy.cm Total DLP DATA REPOSITORY: All CT scans at this facility are submitted to the National Radiology Data Registry (NRDR) Dose Index Registry (DIR) with the [employer] (ACR). RADIATION OPTIMIZATION: All CT scans at this facility use at least one of these dose optimization te chniques: automated exposure control; mA and/or kV adjustment per patient size (includes targeted exa ms where dose is matched to clinical indication); or iterative reconstruction.
--- NOTE | 2024-07-23 20:04 | DI.VRAD_ITS ---
PROCEDURE INFORMATION: Exam: CT Abdomen And Pelvis Without Contrast Exam date and time: 07/23/2024 7:10 PM Age: 44 years old Clinical indication: Other: Lower abdominal pain TECHNIQUE: Imaging protocol: Computed tomography of the abdomen and pelvis without contrast. COMPARISON: CT ABDOMEN PELVIS W 09/05/2023 9:30 AM FINDINGS: Lungs: Mild symmetric dependent atelectasis. Liver: Diffuse fatty infiltration of the liver. Gallbladder and biliary ducts: Prior cholecystectomy. No biliary dilatation. Pancreas: Grossly unremarkable unenhanced pancreas. Spleen: Grossly unremarkable unenhanced spleen. Adrenal glands: Normal appearing adrenal glands. Kidneys and ureters: 4 mm stone in the distal right ureter. Diffuse right-sided ureterectasis with proximal periureteral edema and mild hydronephrosis. 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 Duplicated renal collecting system also present on the left with 2 ureters well visualized into the pelvis. No left-sided urinary tract stones or hydronephrosis. Stomach and bowel: No oral contrast. Stomach partially distended with ingested material. No small bowel dilatation to suggest obstruction. Normal-appearing colon. No evidence of diverticulitis or colitis. Appendix: Appendix partially obscured but normal in caliber and appearance through its visualized portion. Intraperitoneal space: No gross ascites or free air. Vasculature: Normal caliber abdominal aorta. Lymph nodes: No pathologically enlarged mesenteric, retroperitoneal, or pelvic sidewall lymph nodes. Urinary bladder: Urinary bladder partially collapsed but grossly unremarkable, as seen. Reproductive: Normal-appearing prostate gland and seminal vesicles. Bones/joints: No acute fracture seen among the bones of the abdomen or pelvis. Spinal degenerative change with small Schmorl's nodes at multiple levels. Prominent discogenic degeneration at L5-S1. Soft tissues: Diastasis recti. Small fat containing right inguinal region hernia. IMPRESSION: Obstructive uropathy on the right. 4 mm stone in the distal right ureter, possibly the cause of obstructive uropathy; however, ureteral dilatation extends beyond the stone to the level of the ureterovesical junction. Urology consultation is recommended to exclude an alternative, non radiopaque cause of distal obstruction. Dictated and Authenticated by: Stephen Malin MD. Orderin Justin Paz MD
[2024-07-23 20:50] LABS: Bilirubin Negative (Negative); Blood Trace-intact (Negative); Clarity Clear (Clear); Glucose Negative (Negative); Ketones Negative (Negative); Leukocyte Esterase Negative (Negative); Nitrite Negative (Negative); Urobilinogen 0.2 mg/dL (Up to 0.2); pH 6.5 (5-8)
[2024-07-23 20:59] LABS: Bacteria Negative HPF (Negative); C & S Indicated? No; Casts Negative LPF (Negative); Crystals Negative HPF (Negative); Epithelial Cells Negative HPF (Negative); Mucus Negative (Negative); RBC 0-2 HPF (0-2); WBC Negative HPF (0-5)
[2024-07-23 21:21] VITALS: BP 142/99; PULSE 82; RESP 16; TEMP 36.4; O2SAT 98
== END 2024-07-23 21:21 | disposition home or self-care (01) ==
PROVIDERS: Emergency Provider Emergency Medicine Emergency Medical Services; PCP Family Medicine
DX: N13.2 Hydronephrosis with renal and ureteral calculous obstruction (principal)
CPT/HCPCS: 36415; 76857; 80053; 83690; 96361; 96374; 99285; 74176; 81003; 81015; 83735; 85025; 99284; J2405

== ENCOUNTER 2024-09-12 16:48 | Observation (INO) | payer BC, SELFPAY ==
[2024-09-12] VITALS (17 sets, daily range): BP systolic 129–175; BP diastolic 88–118; PULSE 77–251; RESP 12–22; TEMP 36.3–36.6; O2SAT 94–99
--- NOTE | 2024-09-12 16:45 | RT.EKG_ITS ---
APPROVED REPORT Exam: Resting ECG Reason for Exam: chest pain Patient Location: E HR:95 bpm ECG Measurements Heart Rate 95 AXIS DE 173 P 34 QRSd 83 QRS 27 QT 346 T 57 QTc 433 Conclusion Sinus rhythm, rate 95 No interval abnormalities No STEMI, Q wave lead III PAC No priors available for comparison
[2024-09-12 17:21] LABS: Abs Immature Grans 0.06 10^3/uL (0.0-0.06); Absolute Basophil Count 0.05 10^3/uL (0.0-0.2); Absolute Monocyte Count 1.14 10^3/uL (0.1-0.8); Absolute Neutrophil Count 6.92 10^3/uL (1.2-6.7); Basophils % 0.4 %; Eosinophils % 0.8 %; HCT 48.6 % (40.0-50.0); HGB 16.4 g/dL (13.5-17.5); Immature Grans % 0.5 %; Lymphocytes % 35.2 %; MCH 30.2 pg (27.0-33.0); MCHC 33.7 % (32.0-36.0); MCV 90 fL (80-95); Monocytes % 8.9 %; Neutrophils % 54.2 %; Platelet Count 323 10^3/uL (130-400); RBC 5.43 10^6/uL (4.36-5.78); RDW 12.7 % (11.8-14.1); RDW-SD 41.5 fL; WBC 12.77 10^3/uL (4.4-10.8)
--- NOTE | 2024-09-12 17:25 | ED.GENADUL_ITS ---
Discharge Plan Disposition Patient Disposition: Home Condition: Stable Discharge Details Chief Complaint: Chest Pain Clinical Impression: Wide-complex tachycardia Primary Care Provider: Behzad Collier ED Provider: Tiana Powell Home Meds and New Rx's Prescriptions: No Action bisacodyl [Dulcolax (bisacodyl)] 5 mg tablet,delayed release (DR/EC) 5 mg PO ONCE Qty: 4 0RF Rx Instructions: Take per colonoscopy instructions provided by ordering providers office polyethylene glycol 3350 17 gram/dose powder 17 g PO ONCE Qty: 238 0RF Rx Instructions: Take per colonoscopy instructions provided by ordering providers office HPI General Mode of arrival: ambulatory . Date/Time Provider Initiated Documentation: 09/12/24 17:06 . Limitations to Documentation: no limitations . Information obtained by: patient, family and old records reviewed . HPI Narrative: HPI: This is a 44-year-old male patient with a past medical history significant for cholecystectomy, GERD, achalasia, SEGAL, who is presenting for evaluation of chest pain, diaphoresis and tachycardia. The patient reports that he is prepping for a routine colonoscopy, has taken his 4 tablets of bisacodyl, has not yet started his MiraLAX, but has been passing lots of stool. Just prior to arrival today he was in his normal state of health when he had a sudden onset of chest pain, felt his heart racing and felt very lightheaded and sweaty. He was immediately brought to our facility for evaluation was found to have a heart rate of 250, and was brought immediately back to a bay for evaluation. The patient has no personal cardiac history, has a family history of cardiac disease and heart attack. He does not use any nicotine or tobacco, does not drink caffeine, has been hydrating with sugar-free Powerade. No other reported changes to his health recently. Exam: Gen: Awake and alert, appears acutely unwell HEENT: Non-icteric sclera Neck: Supple Lungs: Mild tachypnea but no hypoxia, adequate bilateral air movement CV: Appears poorly perfused with thready tachycardic pulses bilaterally Abdomen: Non-distended MSK: Moves 4 extremities without apparent limitation in ROM. No peripheral edema noted Skin: Visualized skin cool, pale/bueno, diaphoretic Neuro: Normal Gait, no obvious focal deficits or facial asymmetry. Speaks in f ull, clear sentences. Psych: Appropriate for situation. MDM: This is a 44-year-old male patient presenting for evaluation of chest pain, diaphoresis, and tachycardia. He was brought immediately back to the bay for evaluation, telemetry notes a tachycardic rhythm in the 230s to 250s, unable to characterize fully given the unstable nature of this patient's presentation, I am suspicious for SVT versus ventricular tachycardia. We are unable to obtain a blood pressure and I am concerned that he is hypotensive given his physical exam evidence for poor perfusion. My differential also included metabolic and electrolyte derangements, dehydration, kidney injury, structural heart disease/arrhythmia including WPW, ischemic heart disease, ACS. Considered hyperthyroidism, toxic and medication effects. ED Course: We applied defibrillation pads, and I requested 5 mg of Versed in anticipation of emergent cardioversion. While awaiting the arrival of these medications I did elect to trial a vagal maneuver with the modified Valsalva, which was successful and the patient converted to a normal sinus rhythm with rapid improvement in his lightheadedness, diaphoresis, and chest pain. We did obtain an EKG after stabilization, which shows a sinus rhythm with occasional PACs, no evidence of acute ischemia, I do not appreciate a significant delta waves that would be suggestive of WPW. I independently interpreted the laboratory studies, which show no significant leukocytosis, anemia, or thrombocytopenia. The chemistry panel is without evidence of electrolyte abnormality, kidney dysfunction, or liver injury. TSH within normal limits, initial troponin 8, 1 hour delta 22, reassuring against active ischemia. The patient remained in a normal sinus rhythm throughout his time in the ED. I did consult [facility] cardiology, Dr. Singleton, who recommends overnight admission to telemetry, echo in the morning, and discharged with a Zio patch and outpatient cardiology follow-up. I discussed this patient's case with the hospitalist who is graciously accepted this patient for admission for ongoing workup and management. Transferred to their care without incident. Tiana Powell MD Related Data Home Medications ?Medication ?Instructions ?Recorded ?Confirmed bisacodyl 5 mg tablet,delayed 5 mg PO ONCE #4 tabs 08/29/24 09/11/24 release (Dulcolax (bisacodyl)) polyethylene glycol 3350 17 17 g PO ONCE #238 grams 08/29/24 09/11/24 gram/dose oral powder Previous Rx's ?Medication ?Instructions ?Recorded bisacodyl 5 mg tablet,delayed 5 mg PO ONCE #4 tabs 08/29/24 release (Dulcolax (bisacodyl)) polyethylene glycol 3350 17 17 g PO ONCE #238 grams 08/29/24 gram/dose oral powder Allergies Allergy/AdvReac Type Severity Reaction Status Date / Time feathers AdvReac Mild epistaxis Verified 09/11/24 10:02 General Stated Complaint: Chest Pain RADHA: 2 Course Vital Signs Vital signs: Vital Signs Temperature 36.6 C 09/12/24 16:57 Pulse 251 H 09/12/24 16:57 Respiratory Rate 22 09/12/24 16:57 Pulse Oximetry 98 09/12/24 16:57 Temperature 36.6 C 09/12/24 16:57 Pulse 251 H 09/12/24 16:57 Respiratory Rate 22 09/12/24 16:57 Respiratory Effort Labored, Incrsd Work of Breathing 09/12/24 17:16 Respiratory Depth Shallow 09/12/24 17:16 Respiratory Pattern Tachypnea 09/12/24 17:16 Pulse Oximetry 98 09/12/24 16:57 Pain Level 5 09/12/24 16:57 Lab/Test Results Lab/Test Results: Laboratory Tests Range/Units 09/12/24 16:58 WBC (4.4-10.8) 10^3/uL 12.77 H RBC (4.36-5.78) 10^6/uL 5.43 Hgb (13.5-17.5) g/dL 16.4 Hct (40.0-50.0) % 48.6 MCV (80-95) fL 90 MCH (27.0-33.0) pg 30.2 MCHC (32.0-36.0) % 33.7 RDW (11.8-14.1) % 12.7 Plt Count (130-400) 10^3/uL 323 MPV (8.0-11.0) fL 11.0 Immature Gran % % 0.5 Neutrophils % % 54.2 Lymphocytes % % 35.2 Monocytes % % 8.9 Eosinophils % % 0.8 Basophils % % 0.4 Nucleated RBC % (0.0-0.3) % 0.0 Absolute Neutrophils (1.2-6.7) 10^3/uL 6.92 H Absolute Lymphocytes (1.2-3.4) 10^3/uL 4.50 H Absolute Monocytes (0.1-0.8) 10^3/uL 1.14 H Absolute Eosinophils (0.0-0.7) 10^3/uL 0.10 Absolute Basophils (0.0-0.2) 10^3/uL 0.05 Medical Decision Making Quality:SDOH Health Related Social Needs: No Data to Display PFSH All Active Problems (Updated 09/12/24 @ 19:33 by Tiana Powell MD) Wide-complex tachycardia (Acute) Tachyarrhythmia (Acute) Calculus of gallbladder with chronic cholecystitis (Acute) Benign esophageal stricture (Acute) Secondary to previous fundoplication Obesity (BMI 30-39.9) (Acute) Chronic GERD (Acute) Nephrolithiasis (Chronic) Cholelithiasis (Acute) Abdominal pain (Acute) Non-alcoholic fatty liver disease (Acute) Hepatic hemangioma (Acute) Medical History Achalasia 80% corrected Surgical History History of esophagogastroduodenoscopy (EGD) (~10/21/21) [place] S/P laparoscopy Heller myotomy and fundoplication in 2015 at [facility] [place] Hx laparoscopic cholecystectomy (~10/2023) Status post vasectomy Social History Smoking/Tobacco Use Status: Never Smoking risk assessment performed?: Yes Alcohol Intake: never Drug use: Never Substance use type: does not use Housing: house Do you feel safe at home: Yes Do you feel safe in your relationship?: Yes
[2024-09-12] MEDS: Lactated Ringers 1,000 ML 1000 ML IV (17:26)
[2024-09-12 18:19] LABS: ALT 60 U/L (16-63); AST 30 U/L (15-37); Albumin 4.4 g/dL (3.4-5.0); Alkaline Phosphatase 71 U/L (46-116); Anion Gap 11.2 mmol/L (3-11); BUN 11 mg/dL (7-18); Bilirubin, Total 0.6 mg/dL (0.2-1.0); CO2 28.8 mmol/L (21.0-32.0); CREATININE 1.1 mg/dL (0.70-1.30); Calcium 9.7 mg/dL (8.5-10.1); Chloride 101 mmol/L (98-107); Estimated GFR 84.37 (mL/min/1.73m2); Glucose 129 mg/dL (74-106); Magnesium 2.2 mg/dL (1.8-2.4); Potassium 3.7 mmol/L (3.5-5.1); Sodium 141 mmol/L (136-145); TSH (W/Ref FT4) 2.63 uIU/mL (0.36-3.74); Total Protein 8.2 g/dL (6.4-8.2); Troponin I 8 ng/L (<or=76)
[2024-09-12 18:21] LABS: Troponin I 22 ng/L (<or=76)
--- NOTE | 2024-09-12 19:19 | W.PM.HP.N ---
Date of service: 09/12/24 Time of Service: 19:19 Assessment and Plan Assessment and plan (1) Tachyarrhythmia: Start date: 09/12/24 Status: Acute Assessment and plan: This is a 44-year-old gentleman who does have chronic hypertension not being treated and multiple GI diagnoses without treatment at this time presenting with sudden onset of palpitations with chest pressure and diaphoresis with dizziness. He did walk into the ED for evaluation. He was found to have a tachyarrhythmia with wide-complex which responded to vagal maneuver and carotid massage. He did have initial negative troponins and no evidence of ischemia on EKG. His subsequent troponin was slightly elevated and is trending downward. [facility] cardiology recommended observation on telemetry and echocardiogram in the morning which has been ordered. At the time they were consulted his troponin was normal. They were not recalled and since troponins are trending downward and he did have a significant event, his troponin elevation is most likely secondary and nonischemic. Long-term he needs to reduce his cardiovascular risk and should consider treatment of lipids especially since he has SEGAL and probable sleep apnea with a strong family history of early onset ischemic heart disease. He was not initiated on aspirin or statin at this time and should discuss this with his PCP. If he has a negative workup with echocardiogram and cardiac monitoring, he would be discharged with Zio patch with follow-up cardiology evaluation. He should consider having evaluation for sleep apnea and treatment if positive. As stated, he also should consider statin therapy and possibly baby aspirin daily. Patient denies any alcohol use, has never smoked tobacco and his TSH was normal. He is a full code. (2) Elevated troponin level not due to acute coronary syndrome: Start date: 09/12/24 Status: Acute Assessment and plan: Patient's initial troponin was negative and follow-up was slightly positive now trending downward. Continue trending and we discussed with [facility] cardiology if patient has any suggestion of ischemic event. Thus far this appears to be a secondary issue associated with his tachyarrhythmia. Long-term he should have at least exercise stress test for exercise stress echocardiogram. (3) Obesity (BMI 30-39.9): Status: Chronic Assessment and plan: Patient advised to modify diet and lose weight. He may benefit from evaluation for insulin resistance and possible GLP-1 agonist therapy for weight loss. He also should be evaluated for sleep apnea and initiate treatment if positive testing. History of Present Illness History of Present Illness Chief Complaint: Sudden onset of palpitations with chest discomfort, diaphoresis/lightheaded Narrative: This is a 44-year-old male patient with mostly having a history of a GI problems including achalasia, previous cholecystectomy, GERD and SEGAL on no present therapy who recently was being prepped for colonoscopy. He had a sudden onset of palpitations with chest pressure/pain without radiation but associated diaphoresis and lightheadedness. He presented to the ED for evaluation of the symptoms and was brought immediately to the back because of a rapid heart rate. He did respond to vagal maneuvers and carotid massage breaking a wide-complex tachycardic rhythm to normal sinus rhythm. His heart rate was over 200. [facility] cardiology was consulted and could not confirm or deny that this was an episode of PSVT advised admission for observation on telemetry and echocardiogram in the morning. His troponins were checked upon presentation and did elevate with second measurement and will be trended. He does not have any ischemic changes on his EKG. He does have chronic hypertension when he has office visits but is not on medical therapy for this problem. 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 He does have a family history positive for heart disease with his father having a heart attack younger than 40 years of age. He is not on statin or antihypertensives as mentioned. He does have loud snoring which I observed when I arrived first attempted to interview him and examine the patient. He has not had evaluation for sleep apnea but should be addressed with his PCP. Possibly should chronically treat his hypertension with his PCP. The patient has no other complaints presently and is asymptomatic in sinus rhythm after his tachyarrhythmia episode. He is a full code. Review of Systems Narrative: 13 point review of systems otherwise unrevealing or stable. [facility] All Active Problems (Updated 09/13/24 @ 01:44 by Karl Apple) Elevated troponin level not due to acute coronary syndrome (Acute) Wide-complex tachycardia (Acute) Tachyarrhythmia (Acute) Calculus of gallbladder with chronic cholecystitis (Acute) Benign esophageal stricture (Acute) Secondary to previous fundoplication Obesity (BMI 30-39.9) (Chronic) Chronic GERD (Acute) Nephrolithiasis (Chronic) Cholelithiasis (Acute) Abdominal pain (Acute) Non-alcoholic fatty liver disease (Acute) Hepatic hemangioma (Acute) Medical History Achalasia 80% corrected Surgical History History of esophagogastroduodenoscopy (EGD) (~10/21/21) Leyla S/P laparoscopy Heller myotomy and fundoplication in 2015 at [facility] Hx laparoscopic cholecystectomy (~10/2023) Status post vasectomy Social History Smoking/Tobacco Use Status: Never Smoking risk assessment performed?: Yes Alcohol Intake: never Drug use: Never Substance use type: does not use Housing: house Do you feel safe at home: Yes Do you feel safe in your relationship?: Yes Meds Allergies and Home Medications Allergies Allergy/AdvReac Type Severity Reaction Status Date / Time feathers AdvReac Mild epistaxis Verified 09/11/24 10:02 Home Medications ?Medication ?Instructions ?Recorded ?Confirmed ?Type bisacodyl 5 mg tablet,delayed 5 mg PO ONCE #4 tabs 08/29/24 09/12/24 Rx release (Dulcolax (bisacodyl)) polyethylene glycol 3350 17 17 g PO ONCE #238 grams 08/29/24 09/12/24 Rx gram/dose oral powder Exam Narrative Exam Narrative: General: Patient appears appropriate for age, moderately obese, alert and oriented x 3 and in no acute distress. HEENT: Normocephalic, course and facial features with nonpitting edema over his face, eyes with pupils equal and reactive light symmetric, extraocular movement intact and sclera anicteric. Oropharynx with moist mucosa and normal dentition. Neck: Supple without JVD. Back: Stooped posture without CVA tenderness. Lungs: Clear to auscultation percussion with no focalizing rales or rhonchi. No expiratory wheeze. Heart: Regular rate and rhythm with no murmurs or gallops appreciated. Abdomen: Obese contour, soft and nontender to palpation no palpable hepatosplenomegaly. No guarding or rebound. Bowel sounds positive all quadrants. Genitalia/rectal: Exam deferred. Extremities well no clubbing, cyanosis or pitting edema. Peripheral pulses intact. Skin: Normal color, warm and dry. Neuro: Cranial nerves II through XII gross intact, no focalized motor deficits. No tremor. Psych: Normal affect and mood. No abnormal thought processes. Remote and recent memory intact. Results Labs 09/13/24 06:11 09/13/24 06:11 Labs: Laboratory Results - last 24 hr 09/12/24 09/12/24 16:58 17:56 WBC 12.77 H RBC 5.43 Hgb 16.4 Hct 48.6 MCV 90 MCH 30.2 MCHC 33.7 RDW 12.7 Plt Count 323 MPV 11.0 Immature Gran % 0.5 Neutrophils % 54.2 Lymphocytes % 35.2 Monocytes % 8.9 Eosinophils % 0.8 Basophils % 0.4 Nucleated RBC % 0.0 Absolute Neutrophils 6.92 H Absolute Lymphocytes 4.50 H Absolute Monocytes 1.14 H Absolute Eosinophils 0.10 Absolute Basophils 0.05 Sodium 141 Potassium 3.7 Chloride 101 Carbon Dioxide 28.8 Anion Gap 11.2 H BUN 11 Creatinine 1.1 Est GFR (CKD-EPI 2020) 84.37 Glucose 129 H Calcium 9.7 Magnesium 2.2 Total Bilirubin 0.6 AST 30 ALT 60 Alkaline Phosphatase 71 Troponin I 8 22 Total Protein 8.2 Albumin 4.4 TSH 2.63 Last Vital Signs Temp 36.6 C 09/12/24 16:57 Pulse 91 H 09/12/24 17:45 Resp 12 09/12/24 17:45 BP 158/88 H 09/12/24 18:25 Pulse Ox 96 09/12/24 17:45 Time Spent Time spent with Patient: >75 minutes Time was spent: preparing to see the patient(eg.review tests), obtaining and/or reviewing separately otained hiistory, ordering medications,tests, procedures, referring, communicating with other health care administrative tech, indepentently interpreting results, counseling the patient and care coordination
[2024-09-12 20:08] LABS: D-Dimer 240 ng/mlFEU (<500)
[2024-09-12 20:18] LABS: Troponin I 119 ng/L (<or=76)
--- NOTE | 2024-09-12 20:23 | W.PCEDHO ---
Registration Status: Primary Language: Preferred Language: ED Information & Data Chief Complaint Chest Pain 09/12/24 17:26 Triage Note cp, sweating, nausea 09/12/24 16:57 Medical / Surgical History (Last Reviewed 09/12/24 @ 19:20 by Karl Apple) Achalasia (Last Reviewed 09/12/24 @ 19:20 by Karl Apple) History of esophagogastroduodenoscopy (EGD) (~10/21/21) S/P laparoscopy Hx laparoscopic cholecystectomy (~10/2023) Status post vasectomy Most Recent Vital Signs Temperature 36.6 C 09/12/24 16:57 Pulse 85 09/12/24 20:00 Pulse 86 09/12/24 20:00 Respiratory Rate 17 09/12/24 20:00 Respiratory Effort Labored, Incrsd Work of Breathing 09/12/24 17:16 Respiratory Depth Shallow 09/12/24 17:16 Respiratory Pattern Tachypnea 09/12/24 17:16 Blood Pressure 152/107 H 09/12/24 20:00 Blood Pressure Mean 121 09/12/24 20:00 Pulse Oximetry 96 09/12/24 20:00 Pain Level 5 09/12/24 16:57 Allergies feathers Adverse Reaction (Mild, Verified 09/11/24 10:02) epistaxis Precautions Isolation Standard precaution 09/12/24 17:16 IV IV Catheter Type [Right Saline Lock Antecubital] IV Catheter Gauge [Right 18 Antecubital] Diagnostics 09/12/24 09/12/24 09/12/24 Range/Units 19:47 19:42 17:56 WBC (4.4-10.8) 10^3/uL RBC (4.36-5.78) 10^6/uL Hgb (13.5-17.5) g/dL Hct (40.0-50.0) % MCV (80-95) fL MCH (27.0-33.0) pg MCHC (32.0-36.0) % RDW (11.8-14.1) % Plt Count (130-400) 10^3/uL MPV (8.0-11.0) fL Immature Gran % % Neutrophils % % Lymphocytes % % Monocytes % % Eosinophils % % Basophils % % Nucleated RBC % (0.0-0.3) % Absolute Neutrophils (1.2-6.7) 10^3/uL Absolute Lymphocytes (1.2-3.4) 10^3/uL Absolute Monocytes (0.1-0.8) 10^3/uL Absolute Eosinophils (0.0-0.7) 10^3/uL Absolute Basophils (0.0-0.2) 10^3/uL D-Dimer (<500) ng/mlFEU Sodium (136-145) mmol/L Potassium (3.5-5.1) mmol/L Chloride (98-107) mmol/L Carbon Dioxide (21.0-32.0) mmol/L Anion Gap (3-11) mmol/L BUN (7-18) mg/dL Creatinine (0.70-1.30) mg/dL Est GFR (CKD-EPI 2020) (mL/min/1.73m2) Glucose (74-106) mg/dL Calcium (8.5-10.1) mg/dL Magnesium (1.8-2.4) mg/dL Total Bilirubin (0.2-1.0) mg/dL AST (15-37) U/L ALT (16-63) U/L Alkaline Phosphatase (46-116) U/L Troponin I 119 H* 22 (<or=76) ng/L Total Protein (6.4-8.2) g/dL Albumin (3.4-5.0) g/dL TSH (0.36-3.74) uIU/mL COVID-19 Source Pending SARS-CoV-2 (PCR) Pending Influenza Type A (PCR) Pending Influenza Type B (PCR) Pending RSV (PCR) Pending 09/12/24 Range/Units 16:58 WBC 12.77 H (4.4-10.8) 10^3/uL RBC 5.43 (4.36-5.78) 10^6/uL Hgb 16.4 (13.5-17.5) g/dL Hct 48.6 (40.0-50.0) % MCV 90 (80-95) fL MCH 30.2 (27.0-33.0) pg MCHC 33.7 (32.0-36.0) % RDW 12.7 (11.8-14.1) % Plt Count 323 (130-400) 10^3/uL MPV 11.0 (8.0-11.0) fL Immature Gran % 0.5 % Neutrophils % 54.2 % Lymphocytes % 35.2 % Monocytes % 8.9 % Eosinophils % 0.8 % Basophils % 0.4 % Nucleated RBC % 0.0 (0.0-0.3) % Absolute Neutrophils 6.92 H (1.2-6.7) 10^3/uL Absolute Lymphocytes 4.50 H (1.2-3.4) 10^3/uL Absolute Monocytes 1.14 H (0.1-0.8) 10^3/uL Absolute Eosinophils 0.10 (0.0-0.7) 10^3/uL Absolute Basophils 0.05 (0.0-0.2) 10^3/uL D-Dimer 240 (<500) ng/mlFEU Sodium 141 (136-145) mmol/L Potassium 3.7 (3.5-5.1) mmol/L Chloride 101 (98-107) mmol/L Carbon Dioxide 28.8 (21.0-32.0) mmol/L Anion Gap 11.2 H (3-11) mmol/L BUN 11 (7-18) mg/dL Creatinine 1.1 (0.70-1.30) mg/dL Est GFR (CKD-EPI 2020) 84.37 (mL/min/1.73m2) Glucose 129 H (74-106) mg/dL Calcium 9.7 (8.5-10.1) mg/dL Magnesium 2.2 (1.8-2.4) mg/dL Total Bilirubin 0.6 (0.2-1.0) mg/dL AST 30 (15-37) U/L ALT 60 (16-63) U/L Alkaline Phosphatase 71 (46-116) U/L Troponin I 8 (<or=76) ng/L Total Protein 8.2 (6.4-8.2) g/dL Albumin 4.4 (3.4-5.0) g/dL TSH 2.63 (0.36-3.74) uIU/mL COVID-19 Source SARS-CoV-2 (PCR) Influenza Type A (PCR) Influenza Type B (PCR) RSV (PCR) Intake and Output - 24 Hour Total 09/12/24 16:48 thru 09/12/24 18:08 Intake Total 1000 Balance 1000 Weight 124 kg Intake: IV 1000 Falls Risk Assessment History of Falls No History 09/12/24 17:16 Contributing Factors No Factors 09/12/24 17:16 Ambulatory Aids Independent 09/12/24 17:16 Tubes/Lines None 09/12/24 17:16 Gait Evaluation No gait disturbance 09/12/24 17:16 Cognition No cognitive impairment 09/12/24 17:16 Fall Total Score 0 09/12/24 17:16 Level of Risk Standard/Low Risk 09/12/24 17:16 Problems (Last Reviewed 09/12/24 @ 19:20 by Karl Apple) Tachyarrhythmia (Acute) Obesity (BMI 30-39.9) (Acute) v v v v v v v v v Sending and/or Receiving Nurses: Please use comment section below to note any information pertinent to the patient hand-off not included above. Information / Comments:no questions. Report received from:Mariposa isbell.
[2024-09-12 20:27] LABS: COVID-19 PCR Negative (Negative); Influenza A PCR Negative (Negative); Influenza B PCR Negative (Negative); RSV PCR Negative (Negative)
[2024-09-12 20:28] LABS: Source Nasopharynx
[2024-09-12] MEDS: Enoxaparin 40 MG/0.4 ML SYR SC (22:05)
[2024-09-12] MEDS: Normal Saline Flush 10 ML SYR IVP (22:06)
[2024-09-12] MEDS: Metoprolol 25 MG TAB PO (22:06)
[2024-09-13 03:36] VITALS: BP 112/62; PULSE 67; RESP 20; TEMP 36.6; O2SAT 98
[2024-09-13 06:38] LABS: HCT 40.1 % (40.0-50.0); HGB 13.8 g/dL (13.5-17.5); MCH 30.1 pg (27.0-33.0); MCHC 34.4 % (32.0-36.0); MCV 87 fL (80-95); MPV 11.1 fL (8.0-11.0); Platelet Count 210 10^3/uL (130-400); RBC 4.59 10^6/uL (4.36-5.78); RDW 12.8 % (11.8-14.1); RDW-SD 40.5 fL; WBC 5.57 10^3/uL (4.4-10.8)
[2024-09-13 07:11] LABS: ALT 44 U/L (16-63); AST 21 U/L (15-37); Albumin 3.5 g/dL (3.4-5.0); Alkaline Phosphatase 58 U/L (46-116); Anion Gap 6.4 mmol/L (3-11); BUN 14 mg/dL (7-18); Bilirubin, Total 0.5 mg/dL (0.2-1.0); CO2 29.6 mmol/L (21.0-32.0); CREATININE 0.9 mg/dL (0.70-1.30); Chloride 106 mmol/L (98-107); Estimated GFR 107.33 (mL/min/1.73m2); Glucose 98 mg/dL (74-106); Potassium 3.8 mmol/L (3.5-5.1); Sodium 142 mmol/L (136-145); Total Protein 6.7 g/dL (6.4-8.2)
[2024-09-13 07:21] LABS: Troponin I 83 ng/L (<or=76)
[2024-09-13 07:27] VITALS: BP 128/80; PULSE 78; RESP 16; TEMP 36.4; O2SAT 95
[2024-09-13 08:54] VITALS: BP 123/78; PULSE 76
[2024-09-13] MEDS: Normal Saline Flush 10 ML SYR IVP (08:56)
--- NOTE | 2024-09-13 09:12 | INITIAL_ITS ---
Date of service: 09/13/24 Time of Service: 09:12 Care Management Initial Assmt Initial Assessment Reason for Hospitalization: tachycardia Functional Status/Living Situation Patient Presentation: Leroy was fully dressed and ready for discharge when CM met with him. His hardwood finisher was with him and they expressed their appreciation for the wonderful care Leroy received. They asked how they could communicate their positive experience with the hospital administration and CM provided them with a Hilda Award card to complete. Leroy was admitted after having an episode of chest pain with palpitations, tachycardia and diaphoresis with a heart rate over 250. In the ED, the provider used a modified Valsalva maneuver and he converted to NSR with a rate in the 90s and his symptoms resolved. He was admitted to [facility] and was monitored overnight. He remained in sinus rhythm and was ready for discharge this morning. Town of Residence: [facility] Resides with: Other (hardwood finisher Shonda Sawant) Employment Status: Employed ([employer]) Instrumental Activities of Daily Living (ADLs): Independent Medications Medication Management: No Issues/Barriers identified Advance Directives Advance Directives: Do you have an Advance Directive: N 03/01/18 08:32 AD On File at [facility]: N 03/01/18 08:32 Date Asked 09/12/24 09/12/24 17:10 AD Date Reviewed COLST On File at [facility] COLST Date Scanned Code Status Resuscitation Status Full Code Insurance Coverage/Financial Issues Insurance: BC/BS out of state Care Team Visit Care Team Role Provider Type Soraida Leal APRN MD [facility] STAFF PHYSICIAN Behzad Collier MD Primary Care Provider NON-[facility] STAFF PHYSICIAN Tiana Powell MD Emergency Provider [facility] STAFF PHYSICIAN Karl Apple Admit Provider NON-[facility] STAFF PHYSICIAN Attending Provider Discharge Potential Discharge Needs: PCP F/U Appt and Other (Tamika patch, Cardiology followup) Anticipated Barriers to Discharge: None Identified Patient/Family Education Needs: Review discharge instructions, discuss Ask Me Three Transportation: Private vehicle Plan: Leroy will be discharged home with a Zio patch but otherwise, no new services. He will follow up with his PCP and, likely Cardiology, and will transport with family. Social Determinants of Health Screening Social Determinants of health last assessed in clinic: 09/13/24 Will the Patient Participate in the Screening?: Yes Do you worry about having a steady place to live?: no Problems where you live: no known problems In the past 12 months, have you had to go without electric, gas, oil or water in your home?: no 1. Within the past 12 months, we worried whether our food would run out before we got money to buy more.: Never true 2. Within the past 12 months, the food we bought just didn't last and we didn't have money to get more.: Never true Has lack of transportation kept you from medical appointments or from doing things needed for daily living?: no Has anyone in your life made you feel unsafe or unsupported?: no How hard is it for you to pay for the very basics like food, housing, medical care, and heating? Would you say it is:: Not hard at all Do you want help finding or keeping work or a job?: I do not need or want help If for any reason you need help with day-to-day activities such as bathing, preparing meals, shopping, managing finances, etc., do you get the help you need?: I don?t need any help How often do you feel lonely or isolated from those around you?: Never Do you speak a language other than Hebrew at home?: No Does the patient want assistance with any of the above?: No PFSH All Active Problems (Updated 09/13/24 @ 01:44 by Karl Apple) Elevated troponin level not due to acute coronary syndrome (Acute) Wide-complex tachycardia (Acute) Tachyarrhythmia (Acute) Calculus of gallbladder with chronic cholecystitis (Acute) Benign esophageal stricture (Acute) Secondary to previous fundoplication Obesity (BMI 30-39.9) (Chronic) Chronic GERD (Acute) Nephrolithiasis (Chronic) Cholelithiasis (Acute) Abdominal pain (Acute) Non-alcoholic fatty liver disease (Acute) Hepatic hemangioma (Acute) Medical History Achalasia 80% corrected Surgical History History of esophagogastroduodenoscopy (EGD) (~10/21/21) Lelya S/P laparoscopy Heller myotomy and fundoplication in 2014 at [facility] Hx laparoscopic cholecystectomy (~10/2023) Status post vasectomy Social History Smoking/Tobacco Use Status: Never Smoking risk assessment performed?: Yes Alcohol Intake: never Drug use: Never Substance use type: does not use Housing: house Do you feel safe at home: Yes Do you feel safe in your relationship?: Yes
--- NOTE | 2024-09-13 09:48 | W.PM.PROGNOT ---
Date of Service Date of service: 09/13/24 Time of Service: 09:48 Assessment and Plan Assessment and plan (1) Tachyarrhythmia: Start date: 09/12/24 Status: Acute (2) Elevated troponin level not due to acute coronary syndrome: Start date: 09/12/24 Status: Acute (3) Obesity (BMI 30-39.9): Status: Chronic Objective Last Vital Signs Temp 36.4 C L 09/13/24 07:27 Pulse 76 09/13/24 08:54 Resp 16 09/13/24 07:27 BP 123/78 09/13/24 08:54 Pulse Ox 95 09/13/24 07:27 Laboratory Results - last 24 hr 09/12/24 09/12/24 09/12/24 16:58 17:56 19:42 WBC 12.77 H RBC 5.43 Hgb 16.4 Hct 48.6 MCV 90 MCH 30.2 MCHC 33.7 RDW 12.7 Plt Count 323 MPV 11.0 Immature Gran % 0.5 Neutrophils % 54.2 Lymphocytes % 35.2 Monocytes % 8.9 Eosinophils % 0.8 Basophils % 0.4 Nucleated RBC % 0.0 Absolute Neutrophils 6.92 H Absolute Lymphocytes 4.50 H Absolute Monocytes 1.14 H Absolute Eosinophils 0.10 Absolute Basophils 0.05 D-Dimer 240 Sodium 141 Potassium 3.7 Chloride 101 Carbon Dioxide 28.8 Anion Gap 11.2 H BUN 11 Creatinine 1.1 Est GFR (CKD-EPI 2020) 84.37 Glucose 129 H Calcium 9.7 Magnesium 2.2 Total Bilirubin 0.6 AST 30 ALT 60 Alkaline Phosphatase 71 Troponin I 8 22 Total Protein 8.2 Albumin 4.4 TSH 2.63 COVID-19 Source Nasopharynx SARS-CoV-2 (PCR) Negative Influenza Type A (PCR) Negative Influenza Type B (PCR) Negative RSV (PCR) Negative 09/12/24 09/13/24 19:47 06:11 WBC 5.57 RBC 4.59 Hgb 13.8 D Hct 40.1 MCV 87 MCH 30.1 MCHC 34.4 RDW 12.8 Plt Count 210 MPV 11.1 H Immature Gran % Neutrophils % Lymphocytes % Monocytes % Eosinophils % Basophils % Nucleated RBC % Absolute Neutrophils Absolute Lymphocytes Absolute Monocytes Absolute Eosinophils Absolute Basophils D-Dimer Sodium 142 Potassium 3.8 Chloride 106 Carbon Dioxide 29.6 Anion Gap 6.4 BUN 14 Creatinine 0.9 Est GFR (CKD-EPI 2020) 107.33 Glucose 98 Calcium 9.0 Magnesium 2.0 Total Bilirubin 0.5 AST 21 ALT 44 Alkaline Phosphatase 58 Troponin I 119 H* 83 H* Total Protein 6.7 Albumin 3.5 TSH COVID-19 Source SARS-CoV-2 (PCR) Influenza Type A (PCR) Influenza Type B (PCR) RSV (PCR)
--- NOTE | 2024-09-13 10:00 | DI.US_ITS ---
APPROVED REPORT EXAM: Comprehensive 2D, Doppler, and color-flow Echocardiogram Patient Location: In-Patient Room/Bed: [facility] Superintendent: Vu Carroll RDCS (AE) Indications: Symptomatic, wide-complex tachyarrythmia Other Information Study Quality: Good Conclusion Normal left ventricular wall thickness and chamber size. Ejection fraction is 60 to 65%. Wall motio n is normal Normal right ventricular size and function Both atria are normal in size There are no structural valvular abnormalities Trace aortic regurgitation Wall motion Left Ventricle The left ventricle is normal size. Left ventricular systolic function is normal. The left ventricular ejection fraction is within the normal range. There is normal left ventricular wall thickness. There is normal LV segmental wall motion. There is no ventricular septal defect visualized. LVEF is 60-65% . Right Ventricle The right ventricle is normal size. The right ventricular systolic function is normal. Atria The left atrium size is normal. The right atrium size is normal. Aortic Valve The aortic valve is normal in structure. Aortic valve is trileaflet. There is no aortic valvular sten osis. Trivial aortic regurgitation. Mitral Valve The mitral valve is normal in structure. No evidence of mitral valve stenosis. There is no mitral alcides ve regurgitation noted. Tricuspid Valve The tricuspid valve is normal in structure. There is no tricuspid valve stenosis. Trivial tricuspid r egurgitation. Pulmonic Valve The pulmonary valve is normal in structure. There is no pulmonic valvular stenosis. There is no pulmo fartun valvular regurgitation. Great Vessels The aortic root is normal in size. The ascending aorta is normal in size. Aortic arch is normal in ca liber. IVC is normal in size and collapses >50% with inspiration. Pericardium There is no pericardial effusion. 2D Dimensions IVSD d PLAX 0.86 cm M: 0.6-1.2 Ao Root d 2.66 cm M: 3.1 - 3.7 LVPW d PLAX 0.92 cm M: 0.6 - 1.2 Ao Asc Diam d 2.42 cm M: 2.6 - 3.4 LVID d PLAX 4.69 cm M: 4.2 - 5.8 LVDs 3.14 cm M: 2.5 - 4.0 LV EF Teichholz 61.7 % FS 33.12 % LV EDV (Teich) 101.7 mL LV ESV (Teich) 39.0 mL Stroke Vol Index (Teich) 26.26 M-Mode TAPSE 2.28 cm (M/F) >1.7 Auto EF LV EDV A4C 100.4 mL LV EDV A2C 103.4 mL LV EDV BP 100.0 mL LV ESV A4C 40.6 mL LV ESV A2C 40.2 mL LV ESV BP 39.3 mL LVEF(%) A4C 59.6 % LVEF(%) A2C 61.1 % LVEF(%) BP 60.7 % LV SV A4C 59.8 ml LV SV A2C 63.2 ml LV SV BP 60.6 ml LV CO A4C 4.9 L/min LV CO A2C 5.0 L/min LV CO BP 5.0 L/min HR A4C 81.45 BPM HR A2C 79.65 BPM LV EDV Index (BP) LA Volume LA Length A4C 4.6 cm LA Length A2C 4.5 cm LA Area A4C s 12.20 cm2 LA Area A2C s 11.69 cm2 LA Vol A4C A-L 27.65 mL LA Vol A2C A-L 25.61 mL LA Vol Biplane A-L 26.7 mL LA Vol/BSA A4C A-L LA Vol/BSA A2C A-L LA Vol/BSA BP A-L 11.2 mL/m2 LA Vol A4C MOD 25.9 mL LA Vol A2C MOD 24.3 mL LA Vol BP MOD 25.1 mL RA Volume RA Area A4C 6.3 cm2 RA ESV A4C (A-L) 8.3mL RA Vol/BSA A4C A-L RA Length A4C 4.0 cm RA ESV A4C (MOD) 7.9mL LV Diastology MV E' medial 0.075 (>0.07 m/s) MV E Vmax 0.84 (0.4-1.3 m/s) MV E/E' MED 11.16 (<14) MV A Vmax 0.75 (0.4-1.3 m/s) MV E' lateral 0.117 (>0.1 m/s) E/A Ratio 1.1 MV E/E' LAT 7.16 (<14) MV E' Average 0.096 m/s MV E/E'(average) 8.72 Aortic Valve AoV Vmax 1.15 m/s LVOT Vmax 0.95 m/s AoV Peak Grad 5.3 mmHg LVOT Peak Grad 3.6 mmHg AoV Area (Vmax) 3.08 cm2 LVOT VTI 0.205 m AoV VTI 0.248 m LVOT Mean Grad 2.3 mmHg AoV Mean Teodoro. 0.81 m/s LVOT SV 76.56 mL AoV Mean Grad 3.0 mmHg LVOT Diam s 2.15 cm AoV Area (VTI) 3.08 cm2 AV Regurg Peak Gr. 5.32 mmHg Velocity Ratio 0.83 Mitral Valve MV DT 172 (160-240 msec) Pulmonary Valve PV Vmax 0.98 (0.5-1.5 m/s) RVOT Vmax 0.82 m/s PV Peak Grad 3.8 mmHg RVOT Peak Gr. 2.7 mmHg PV Mean Teodoro 0.73 m/s RVOT VTI 0.173 m PV Mean Grad 2.4 mmHg RVOT Mean Gr. 1.7 mmHg
[2024-09-13] MEDS: Metoprolol 25 MG TAB PO (10:59)
[2024-09-13 11:23] VITALS: BP 133/86; PULSE 73; RESP 15; TEMP 36.6; O2SAT 96
--- NOTE | 2024-09-13 11:48 | DSE_ITS ---
Date of service: 09/13/24 Time of Service: 11:48 DS: Diagnosis Discharge Diagnosis (1) Tachyarrhythmia: Status: Acute (2) Elevated troponin level not due to acute coronary syndrome: Status: Acute (3) Obesity (BMI 30-39.9): Status: Chronic Discharge Plan Disposition Patient Disposition: Home Condition: Improving Discharge Details Reason For Visit: Wide-complex tachyarrhythmia, Obesity Admit Date/Time: 09/12/24 19:28 Admit Provider: Karl Apple Attending Provider: Karl Apple Primary Care Provider: Behzad Collier Hospital Course Hospital Course: This 44-year-old male patient with past medical history of GI problems including achalasia, previous cholecystectomy, GERD and untreated, untreated HTN presented to the ED at [facility] for evalaution of sudden onset of palpitations with chest pressure/pain without radiation but associated diaphoresis and lightheadedness. In the ED HR was found to be 230-250 w inabilty to assess the BP. The patient responded to modified Valsalva and converted to NSR as per EKG w/o signs of coronary occlusion. [facility] cardiology consultation was unable to confirm PSVT but recommended overnight observation on telemetry, echocardiogram and cardiac event recording and cardiology referral at discharge. Troponins initially elevated then trended down. The patient remained in a sinus rhythm and received oral metoprolol. The patient will be discharge on a cardiac event recorder, metoprolol succinate low dose, cardiology referral and a follow-up with PCP within 7 days of discharge Echocardiogram conclusion: Normal left ventricular wall thickness and chamber size. Ejection fraction is 60 to 65%. Wall motion is normal Normal right ventricular size and function Both atria are normal in size There are no structural valvular abnormalities Trace aortic regurgitation Recommendation for PCP follow-up: Discussion re treatment for HTN with family history of early CT Re-evaluate need for metoprolol ASA and statin therapy F/U with cardiology referral and cardiac event monitor NELLA evaluation Discussed with Dr. Herrera Home Meds and New Rx's Prescriptions: New metoprolol succinate 25 mg tablet extended release 24 hr 25 mg PO DAILY Qty: 30 0RF Continued bisacodyl [Dulcolax (bisacodyl)] 5 mg tablet,delayed release (DR/EC) 5 mg PO ONCE Qty: 4 0RF Rx Instructions: Take per colonoscopy instructions provided by ordering providers office polyethylene glycol 3350 17 gram/dose powder 17 g PO ONCE Qty: 238 0RF Rx Instructions: Take per colonoscopy instructions provided by ordering providers office Discharge Instructions Referrals: Behzad Collier MD [Primary Care Provider] - (Follow-up within 7 days of discharge) Romy Flores MD [ [facility] STAFF PHYSICIAN] - (Referral as per [facility] cardiology s/p tachycardia w HR [id number] to SR w PAC's with modified Valsalva) Activity:: Activity as Tolerated Equipment/Supplies:: No Equipment Needed Diet:: heart healthy Discharge Orders Other Ambulatory Orders: Cardiac Event Recorder (Routine) Timeframe: 20240913 Facility: [facility] - Location: Respiratory Therapy Ordered By: Soraida Leal DS: Summary Time Spent with Patient providing and/or coordinating discharge services: Greater than 30 minutes Status at Discharge Functional status at discharge: independent ambulation Overall status at discharge: patient is progressing back to baseline Mental Status: mental status grossly normal Speech and Movement: speech and movement normal Mood: congruent mood Affect: normal affect Quality:SDOH Health Related Social Needs: No Data to Display Exam Narrative Exam Narrative: Constitutional The patient is without acute distress Neuro:alert and oriented to self, person, place, time and situation. No neurological focal deficit Chest:Chest is symmetrical and normal appearance Resp: Unlabored breathing, clear lung bilaterally Cardio:Telemtry SR HR 70-80's regular rate and rhythm, S1, S2, no murmur GI: Abdomen is not distended, soft and non tender, bowel sounds are presentn Back/spine/Pelvis: No back tenderness, normal alignment Extremities: strength 5/5 to bilateral lower and upper extremities Psych: RASS 0, congruent mood and normal affect. Psych Mental Status: mental status grossly normal Speech and Movement: speech and movement normal Mood: congruent mood Affect: normal affect DS: Data Vitals/I&O Vitals and I&O: Vital Signs Temperature 36.6 C 09/13/24 11:23 Temperature Source Temporal Artery Scan 09/13/24 11:23 Pulse 73 09/13/24 11:23 Pulse Rhythm Regular 09/12/24 20:45 Pulse 86 09/12/24 20:00 Respiratory Rate 15 09/13/24 11:23 Respiratory Effort Normal 09/12/24 20:45 Respiratory Depth Normal 09/12/24 20:45 Respiratory Pattern Normal 09/12/24 20:45 Blood Pressure 133/86 09/13/24 11:23 Blood Pressure Mean 121 09/12/24 20:00 Pulse Oximetry 96 09/13/24 11:23 Oxygen Delivery Method Room Air 09/13/24 11:23 Oxygen Flow Rate 0 09/13/24 11:23 Pain Level 2 09/13/24 08:54 Comment pt map 105 09/12/24 22:25 Intake & Output 09/12/24 09/12/24 09/13/24 11:59 23:59 11:59 Intake Total 1000 / 1000 Balance 1000 / 1000 Weight 118.933 kg 120.9 kg Intake: IV 1000 / 1000 Data Completed and Pending Labs on day of discharge: Labs from last 24 hours 09/13/24 09/12/24 09/12/24 06:11 19:47 19:42 WBC 5.57 RBC 4.59 Hgb 13.8 D Hct 40.1 MCV 87 MCH 30.1 MCHC 34.4 RDW 12.8 Plt Count 210 MPV 11.1 H Immature Gran % Neutrophils % Lymphocytes % Monocytes % Eosinophils % Basophils % Nucleated RBC % Absolute Neutrophils Absolute Lymphocytes Absolute Monocytes Absolute Eosinophils Absolute Basophils D-Dimer Sodium 142 Potassium 3.8 Chloride 106 Carbon Dioxide 29.6 Anion Gap 6.4 BUN 14 Creatinine 0.9 Est GFR (CKD-EPI 2020) 107.33 Glucose 98 Calcium 9.0 Magnesium 2.0 Total Bilirubin 0.5 AST 21 ALT 44 Alkaline Phosphatase 58 Troponin I 83 H* 119 H* Total Protein 6.7 Albumin 3.5 TSH COVID-19 Source Nasopharynx SARS-CoV-2 (PCR) Negative Influenza Type A (PCR) Negative Influenza Type B (PCR) Negative RSV (PCR) Negative 09/12/24 09/12/24 17:56 16:58 WBC 12.77 H RBC 5.43 Hgb 16.4 Hct 48.6 MCV 90 MCH 30.2 MCHC 33.7 RDW 12.7 Plt Count 323 MPV 11.0 Immature Gran % 0.5 Neutrophils % 54.2 Lymphocytes % 35.2 Monocytes % 8.9 Eosinophils % 0.8 Basophils % 0.4 Nucleated RBC % 0.0 Absolute Neutrophils 6.92 H Absolute Lymphocytes 4.50 H Absolute Monocytes 1.14 H Absolute Eosinophils 0.10 Absolute Basophils 0.05 D-Dimer 240 Sodium 141 Potassium 3.7 Chloride 101 Carbon Dioxide 28.8 Anion Gap 11.2 H BUN 11 Creatinine 1.1 Est GFR (CKD-EPI 2020) 84.37 Glucose 129 H Calcium 9.7 Magnesium 2.2 Total Bilirubin 0.6 AST 30 ALT 60 Alkaline Phosphatase 71 Troponin I 22 8 Total Protein 8.2 Albumin 4.4 TSH 2.63 COVID-19 Source SARS-CoV-2 (PCR) Influenza Type A (PCR) Influenza Type B (PCR) RSV (PCR) PFSH All Active Problems (Updated 09/13/24 @ 01:44 by Karl Apple) Elevated troponin level not due to acute coronary syndrome (Acute) Wide-complex tachycardia (Acute) Tachyarrhythmia (Acute) Calculus of gallbladder with chronic cholecystitis (Acute) Benign esophageal stricture (Acute) Secondary to previous fundoplication Obesity (BMI 30-39.9) (Chronic) Chronic GERD (Acute) Nephrolithiasis (Chronic) Cholelithiasis (Acute) Abdominal pain (Acute) Non-alcoholic fatty liver disease (Acute) Hepatic hemangioma (Acute) Medical History Achalasia 80% corrected Surgical History History of esophagogastroduodenoscopy (EGD) (~10/21/21) Mikado S/P laparoscopy Heller myotomy and fundoplication in 2014 at [facility] Hx laparoscopic cholecystectomy (~10/2023) Status post vasectomy Social History Smoking/Tobacco Use Status: Never Smoking risk assessment performed?: Yes Alcohol Intake: never Drug use: Never Substance use type: does not use Housing: house Do you feel safe at home: Yes Do you feel safe in your relationship?: Yes Time Spent with Patient Time Spent with Patient: 70-84 minutes4 Time was spent: preparing to see the patient(eg.review tests), obtaining and/or reviewing separately otained hiistory, ordering medications,tests, procedures, referring, communicating with other health long term care administrator, indepentently interpreting results, counseling the patient and care coordination
--- NOTE | 2024-09-13 15:19 | PDOC.CMDIS ---
Date of service: 09/13/24 Time of Service: 15:19 Care Management Discharge Plan Reason for Hospitalization: tachycardia and chest pain Discharge Plan: Leroy will be discharged home with a Zio patch but otherwise, no new services. He will follow up with his PCP and, likely Cardiology, and will transport with family. Patient/Family Education Needs: Review discharge instructions, limitations, follow up plan including the Zio patch and discuss [facility] Health Related Social Needs: No Data to Display
--- NOTE | 2024-09-14 07:51 | NUR.NOTE ---
Access chart to reconcile EKG orders with EKG's in [employer]. No second EKG in [employer], duplicate order cancelled. Nursing Note:
== END 2024-09-13 14:16 | disposition home or self-care (01) ==
LOC: ER 19:32 → MS 20:29
PROVIDERS: Admitting Provider Family Medicine; Emergency Provider Emergency Medicine; PCP Family Medicine; Responsible Provider Nurse Practitioner Acute Care; Visit Provider Family Medicine
DX: R07.89 Other chest pain (principal); R42 Dizziness and giddiness; R00.0 Tachycardia, unspecified; R61 Generalized hyperhidrosis; Z82.49 Family history of ischemic heart disease and other diseases of the circulatory system; R74.8 Abnormal levels of other serum enzymes; E66.9 Obesity, unspecified; Z68.36 Body mass index [BMI] 36.0-36.9, adult; I10 Essential (primary) hypertension; K75.81 Nonalcoholic steatohepatitis (NASH); K22.2 Esophageal obstruction; K21.9 Gastro-esophageal reflux disease without esophagitis; D18.09 Hemangioma of other sites
CPT/HCPCS: 00123; 36415; 80053; 85027; 87637; 93005; 96360; 96372; 99285; J1650; 83735; 84443; 84484; 85025; 85379; 93010; 93306; 99223; 99239; G0378

== ENCOUNTER 2024-09-13 13:44 | Outpatient (CLI) | payer BC, SELFPAY | END 2024-09-13 13:45 | disposition home or self-care (01) | LOC: CARDOPNVT 13:44 | PROVIDERS: PCP Family Medicine; Visit Provider Family Medicine | DX: R00.0 Tachycardia, unspecified (principal) | CPT/HCPCS: 93270 ==

== ENCOUNTER 2024-10-15 07:20 | Outpatient (CLI) | payer BC, SELFPAY ==
--- NOTE | 2024-10-15 09:32 | W.CARDEVENT ---
Date of service: 10/15/24 Time of Service: 09:33 Cardiac Event Recorder Referring Provider:: Behzad Collier Indications:: Tachycardia Cardiac Event Note: This is a cardiac event monitor. Patient was monitored for 28 days and 9 hours. Rhythm throughout was sinus with an average heart rate overall of 84. Minimum was 54, maximum 151. There were no significant ventricular dysrhythmias. There was no atrial fibrillation, no high-grade AV block, no pauses greater than 3 seconds. Symptoms were reported which corresponded to sinus rhythm (rates 76, 99, 87, 102 and 106)
== END 2024-10-15 07:21 | disposition home or self-care (01) ==
LOC: CARDOPNVT 07:20
PROVIDERS: PCP Family Medicine; Visit Provider Internal Medicine Cardiovascular Disease
DX: R00.0 Tachycardia, unspecified (principal)
CPT/HCPCS: 93272

== ENCOUNTER 2024-10-29 07:56 | Outpatient (CLI) | payer BC, SELFPAY ==
--- NOTE | 2024-10-29 07:45 | RT.EKG_ITS ---
APPROVED REPORT Exam: Resting ECG Reason for Exam: tachycardia Patient Location: O HR:79 bpm ECG Measurements Heart Rate 79 AXIS WY 178 P 21 QRSd 80 QRS -2 QT 365 T 29 QTc 419 Conclusion Sinus rhythm...normal P axis, V-rate 50- 99 Normal Electrocardiogram
== END 2024-10-29 07:57 | disposition home or self-care (01) ==
LOC: DI.CARD 07:56
PROVIDERS: Visit Provider Internal Medicine Cardiovascular Disease
DX: R00.0 Tachycardia, unspecified (principal)
CPT/HCPCS: 93010